=== PATIENT | male | born 1945 | race Caucasian/White ===

== ENCOUNTER → 2024-10-07 | Outpatient (CLI) | payer MEDICARE, SELFPAY ==
--- NOTE | 2024-10-07 11:50 | US_ITS ---
PROCEDURE: Ultrasound of the thyroid. REASON FOR EXAM: Thyroid nodule. COMPARISON: None. PROCEDURE: RIGHT LOBE: The right lobe of the thyroid gland measures 3.6 cm x 2 cm x 1.4 cm cm. There is a heterogeneous echotexture. There is a 4 mm x 5 mm x 4 mm cystic/solid nodule in the inferior pole. No increased blood flow is seen. LEFT LOBE: The left lobe of the thyroid gland measures 3.4 cm x 1.6 cm x 1.3 cm. There is a heterogeneous echotexture. There are no demonstrated solid, cystic or complex lesions. ISTHMUS: The isthmus measures 5 mm. The regional lymph nodes are normal. US/Thyroid IMPRESSION: Heterogeneous appearance of both lobes of the thyroid gland. There is a 4 mm x 5 mm x 4 mm cystic/solid nodule in the inferior pole of the r ight lobe of the thyroid without increased blood flow. Routine follow-up recommended. Reading Location: [facility]
== END | disposition home or self-care (01) ==
PROVIDERS: PCP Family Medicine; Referring Provider Family Medicine; Visit Provider Family Medicine
DX: E04.1 Nontoxic single thyroid nodule (principal)
CPT/HCPCS: 76536

== ENCOUNTER → 2024-10-11 | Outpatient (CLI) | payer MEDICARE, SELFPAY ==
[2024-10-11 08:31] LABS: Bacteria 0 SEEN /hpf (None Seen); Mucous, Urine 0 SEEN /hpf (<or=2+)
[2024-10-11 10:50] LABS: Absolute Lymphocyte Count 1.15 X10^3/uL (0.83-4.51); Basophil# 0.06 X10^3/uL; Color, Urine Yellow (Yellow); Eosinophil# 0.36 X10^3/uL; Eosinophils% 5.7 % (0-5); Glucose, Dipstick Normal (Normal); Hematocrit 46.3 % (40-54); Ketone-Dipstick Negative (Negative); Leukocyte Esterase-Dipstick Negative /ul (Negative); Lymphocyte # 1.15 X10^3/ul (0.83-4.51); Lymphocyte % 18.3 % (19-41); Mean Corp Hgb Conc 32.4 g/dL (32-36); Mean Corpuscular Hgb 31.1 pg (27.0-32.0); Mean Corpuscular Volume 96.1 fL (80-94); Monocyte% 11.1 % (0-10); NRBC Flagged by Analyzer 0 % (0-5); Neutrophil # 3.99 X10^3/uL (2.7-7.7); Neutrophil % 63.4 % (47-70); Nitrite-Dipstick Negative (Negative); Occult Blood-Urine Negative /ul (Negative); Platelet Count 226 K/mm3 (150-450); Protein-Dipstick 15 mg/dl (Negative); RBC Distribution Width CV 12.7 % (11.6-14.6); RBC Distribution Width SD 45.1 fl (35.1-43.9); Red Blood Count 4.82 M/mm3 (4.6-6.2); Urine Bilirubin Dipstick Negative (Negative); Urine Clarity Clear (Clear); Urine Urobilinogen Normal (Normal); White Blood Count 6.3 K/mm3 (4.4-11.0)
[2024-10-11 10:55] LABS: Red Blood Cells-Urine 0 SEEN /hpf (0-5); Squamous Epithelial Cells - UA 0-5 SEEN /hpf (0-5); White Blood Cells 0-5 SEEN /hpf (0-5)
[2024-10-11 11:47] LABS: Protein, Urine (Random) 14.9 mg/dL (0.0-12.0); Protein:Creat Ratio 75 mg/g CRE (0-200)
[2024-10-11 11:49] LABS: PTHIN 52 pg/mL (11-61)
[2024-10-11 12:02] LABS: ALB/GLOB Ratio 1.4 RATIO (0.9-2.4); AST(SGOT) 22 U/L (<=37); Alanine Aminotransfer ALT/SGPT 17 U/L (<=46); Albumin, Serum 4.2 g/dL (3.4-4.8); Alkaline Phosphatase 89 U/L (40-129); Anion Gap 11 (5-15); BUN 20 mg/dL (4-19); BUN/Creat Ratio 16.9 RATIO (10-20); Calcium,Total 9.4 mg/dL (7.6-11.0); Chloride 104 mmol/L (98-108); Cholesterol 153 mg/dL (<=200); Creatinine, Serum 1.17 mg/dL (0.70-1.20); EST Glomerular Filtration Rate 63 (>60); Globulin 2.9 g/dL (2.2-4.2); Glucose 106 mg/dL (70-99); High Density Lipoprotein 48 mg/dL; Low Density Lipoprotein Calc. 71 mg/dL; Magnesium 2.2 mg/dL (1.5-2.2); Potassium 4.1 mmol/L (3.3-5.1); Protein, Total 7.1 g/dL (5.9-8.4); Sodium Level 139 mmol/L (133-145); Total Bilirubin 0.64 mg/dL (0.00-1.30); Triglycerides 169 mg/dL; Very Low Density Lipoprotein 34 mg/dL (5-40); Vitamin B12 908 pg/mL (180-914); Vitamin D,25 Hydroxy 29.9 ng/mL (30-100); cholesterol:hdl ratio screen 3.17
[2024-10-11 23:35] LABS: Hemoglobin A1c 6.2 % (<=5.6)
[2024-10-12 17:08] LABS: Anti-Thyroglobulin AB < 1.0 IU/mL (0.0-0.9); Thyroglobulin, Serum Qt. 6.4 ng/mL (1.4-29.2); Thyroid Peroxidase AB 12 IU/mL (0-34)
== END | disposition home or self-care (01) ==
LOC: MFPLAB 08:26
PROVIDERS: PCP Family Medicine; Referring Provider Family Medicine; Visit Provider Family Medicine
DX: E53.8 Deficiency of other specified B group vitamins (principal); E55.9 Vitamin D deficiency, unspecified; N18.9 Chronic kidney disease, unspecified; E04.1 Nontoxic single thyroid nodule; E78.5 Hyperlipidemia, unspecified; I12.9 Hypertensive chronic kidney disease with stage 1 through stage 4 chronic kidney disease, or unspecified chronic kidney disease; R73.09 Other abnormal glucose
CPT/HCPCS: 36415; 80053; 80061; 81001; 82306; 82570; 82607; 83036; 83735; 83970; 84156; 84432; 84443; 85025; 86376; 86800

== ENCOUNTER → 2024-10-24 | Outpatient (CLI) | payer MEDICARE, SELFPAY ==
--- NOTE | 2024-10-24 06:51 | MRI_ITS ---
PROCEDURE: BRAIN W/WO CONTRAST 10/24/2024 REASON FOR EXAM: TRIGEMINAL NEURALGIA. History of prostate cancer in 2002. 4-5 month history of left pre-auricular pain. Query trigeminal neuralgia. TECHNIQUE: Multiplanar, multisequence MRI of the brain and orbits is performed both before and after administration of 20 mL of intravenous Clariscan. COMPARISON: None. FINDINGS: Major intracranial flow voids are intact. No regional flow void is visualized. There is no evidence of intra-axial or extra-axial mass. There is no evidence of cerebral hemorrhage or cerebral edema. There is no evidence of midline shift. Ventricular system and cisterns are normal. A tiny cavum septum pellucidum is noted. Scattered tiny abnormal bright T2 foci are seen throughout the jaimes radiata and centrum semiovale regions bilaterally, becoming more patchy and confluent areas of more extensive disease in a periventricular location, especially about the posterior horns of both lateral ventricles. No concordant or discordant focus of diffusion restriction is identified. Pituitary gland and optic chiasm are unremarkable. Clivus is normal. Orbital contents are symmetrically normal. No retro-orbital mass or blood vessel is noted. Sinuses are normal. Calvarium is free of suspicious lesion. No abnormal enhancing focus is seen in the brain or leptomeninges. MRI/Brain W/WO Contrast IMPRESSION: Scattered supratentorial white matter findings are nonspecific but likely repre sent areas of gliosis due to chronic microangiopathy. Otherwise negative. Reading Location: [place] [id number]
--- NOTE | 2024-10-24 07:00 | RAD_ITS ---
EXAM: XR Orbits Foreign Body CLINICAL INDICATION: MRI CLEARANCE TECHNIQUE: Frontal view(s) of the orbits. COMPARISON: No relevant prior studies available. FINDINGS: BONES/JOINTS: Unremarkable. No acute fracture. SINUSES: Unremarkable. No air-fluid levels. SOFT TISSUES: Unremarkable. No radiopaque foreign body. RAD/Orbits for Foreign Body IMPRESSION: Normal orbital x-rays. No radiopaque foreign body in either orbit. [facility]
== END | disposition home or self-care (01) ==
PROVIDERS: PCP Family Medicine; Referring Provider Family Medicine; Visit Provider Family Medicine
DX: Z01.818 Encounter for other preprocedural examination (principal); G50.0 Trigeminal neuralgia
CPT/HCPCS: 70030; 70553; A9575

== ENCOUNTER → 2024-10-27 | Outpatient (CLI) | payer MEDICARE, SELFPAY ==
--- NOTE | 2024-10-27 10:15 | RAD_ITS ---
EXAM: XR Right Wrist Complete, 3 or More Views CLINICAL INDICATION: PAIN TECHNIQUE: Frontal, lateral and oblique views of the right wrist. COMPARISON: No relevant prior studies available. FINDINGS: BONES/JOINTS: Healed fracture deformity of the proximal radius. No dislocation. SOFT TISSUES: Soft tissue swelling. No radiopaque foreign body. RAD/Wrist min 3 Views IMPRESSION: Healed fracture deformity of the proximal radius. Reading Location[facility]
== END | disposition home or self-care (01) ==
LOC: MTRAD 10:15
PROVIDERS: PCP Family Medicine; Referring Provider Family Medicine; Visit Provider Family Medicine
DX: M25.531 Pain in right wrist (principal)
CPT/HCPCS: 73110

== ENCOUNTER → 2024-11-11 | Outpatient (CLI) | payer MEDICARE, SELFPAY ==
--- NOTE | 2024-11-11 06:37 | ECHOD_ITS ---
Reason For Study Reason For Study: HTN Procedure This was a 2D Doppler, Color Flow transthoracic echocardiogram. Exam performed in department. Left Ventricle Normal LV size. Mild concentric left ventricular hypertrophy. Left ventricular systolic function is normal. The left ventricular ejection fraction is 60 %. No regional wall motion abnormalities noted. Right Ventricle Normal RV size. Normal systolic function. Atria Normal left atrium. Normal right atrium. Bubble contrast study is negative for PFO/ASD. Mitral Valve Normal mitral valve. Mild (1+) eccentric mitral valve insufficiency. Tricuspid Valve Normal tricuspid valve. Aortic Valve Trisinus/trileaflet aortic valve. Mild (1+) aortic valve insufficiency. Pulmonic Valve Normal pulmonic valve. Great Vessels Normal aortic root. The pulmonary artery is normal size. Inferior vena cava collapse with respiration. Pericardium/Pleural No pericardial effusion. Medication Performed a rapid injection of agitated mix of 9 cc saline and 1cc air to assess for atrial septal defect. MMode/2D Measurements & Calculations LVIDd: 4.1 cm IVSd: 1.3 cm LVOT diam: 1.9 cm LVIDs: 2.5 cm LVPWd: 1.2 cm RVDd: 3.5 cm FS: 39.0 % LVOT area: 2.8 cm2 Ao root diam: 3.3 cm LAV(MOD-bp): 56.9 ml LVAd ap4: 28.1 cm2 LAV(MOD-bp) Indexed: 25.5 ml/m2 LVLd ap4: 8.3 cm LAV(MOD-sp2): 49.2 ml EDV(MOD-sp4): 79.2 ml LAV(MOD-sp4): 52.1 ml EDV(sp4-el): 80.6 ml LVAs ap4: 17.5 cm2 LVLs ap4: 7.5 cm ESV(MOD-sp4): 35.7 ml ESV(sp4-el): 34.7 ml EF(MOD-sp4): 54.9 % EF(sp4-el): 56.9 % LVAd ap2: 29.9 cm2 SV(MOD-sp4): 43.5 ml SV(MOD-sp2): 58.9 ml LVLd ap2: 8.5 cm SI(MOD-sp4): 19.5 ml/m2 SI(MOD-sp2): 26.4 ml/m2 EDV(MOD-sp2): 90.8 ml EDV(sp2-el): 89.4 ml LVAs ap2: 16.5 cm2 LVLs ap2: 7.4 cm ESV(MOD-sp2): 31.9 ml ESV(sp2-el): 31.5 ml EF(MOD-sp2): 64.8 % SV(sp4-el): 45.9 ml LA dimension(2D): 3.9 cm LA A4 area: 16.9 cm2 RA A4 area: 14.0 cm2 TAPSE: 2.2 cm Doppler Measurements & Calculations MV E max adi: 49.7 cm/sec Lat Peak E' Adi: 7.3 cm/sec Med Peak E' Adi: 6.9 cm/sec MV A max adi: 67.9 cm/sec E/E' lat: 6.8 E/E' med: 7.2 MV E/A: 0.73 Ao V2 max: 180.7 cm/sec AI max adi: 392.6 cm/sec LV V1 max: 113.9 cm/sec Ao max P.1 mmHg AI max P.7 mmHg LV V1 max P.2 mmHg Ao V2 mean: 121.3 cm/sec LV V1 mean P.8 mmHg Ao mean P.8 mmHg AI dec slope: 224.7 cm/sec2 LV V1 mean: 77.8 cm/sec Ao V2 VTI: 37.6 cm AI P1/2t: 511.7 msec LV V1 VTI: 26.9 cm AV (velocity ratio): 0.72 JE(I,D): 2.0 cm2 JE(V,D): 1.8 cm2 SV(LVOT): 75.4 ml PA V2 max: 104.8 cm/sec ECHO/Echo Complete Interpretation Summary Normal LV size. Left ventricular systolic function is normal. The left ventricular ejection fraction is 60 %. Bubble contrast study is negative for PFO/ASD. Mild concentric left ventricular hypertrophy. Ordering Physician: Gm Srinivasan Referring Physician: Kyle Noel Performed By: Giselle Miner RDCS
--- NOTE | 2024-11-11 13:35 | STRESSREP ---
Stress Test Report Exercise myocardial perfusion stress test. 79-year-old man with a history of elevated calcium score Stress protocol: Resting EKG demonstrates normal sinus rhythm with a rate of 63 bpm resting blood pressure is 144/74 mmHg. The patient exercised according to the regular Mat protocol for a total duration of 6-1/2 minutes attaining a maximum heart rate of 139 bpm which was 98% of maximum predicted heart rate; the maximum workload was 8.5 metabolic equivalents. At rest there were no ST or T wave changes noted to suggest ischemia and at peak exercise upsloping ST changes only were noted which did not meet the criteria for ischemia. No clinical angina was noted the test was terminated due to the target heart rate being achieved/fatigue. The peak blood pressure was 202/70 mmHg. hypertensive response to exercise is noted. Rate-pressure product was 25,500. Myocardial perfusion protocol. 14.7 mCi of technetium 99m sestamibi was injected at rest. The patient exercised according to regular Mat protocol for total duration of 6-1/2 minutes and at peak exercise 44.4 mCi of technetium 99m sestamibi was injected stress images were obtained stress and rest images were reconstructed in comparing the short axis vertical long and horizontal long axis. Gated images were also obtained. Perfusion SPECT analysis: Review of the stress images demonstrate normal uptake of tracer noted in all areas of the myocardium. The resting images similarly demonstrate normal uptake of tracer noted in all areas of the myocardium. No areas of reversibility are noted to suggest ischemia no previous infarct was noted. Gated SPECT analysis: The gated ejection fraction is 64%. Conclusion: Normal exercise myocardial perfusion stress test at a moderate workload Preserved ejection fraction.
== END | disposition home or self-care (01) ==
PROVIDERS: PCP Family Medicine; Referring Provider Internal Medicine Cardiovascular Disease; Visit Provider Internal Medicine Cardiovascular Disease
DX: I10 Essential (primary) hypertension (principal); I25.10 Atherosclerotic heart disease of native coronary artery without angina pectoris
CPT/HCPCS: 78452; 93017; 93306; A9500; A4216

== ENCOUNTER 2024-11-24 10:20 | Outpatient (RCR) | payer MEDICARE, SELFPAY ==
--- NOTE | 2024-11-24 12:48 | HP.OTEVAL_ITS ---
Patient's Visit Information Visit Information Visit Information: TRINA SAMUEL is a 79 year old M, referred to Occupational Therapy by Dr. Kyle Noel MD, with a diagnosis of right wrist pain. Date of Evaluation: 11/24/24 Occupational Therapist: Chitra Mera, CESARR/Mira, CHT Subjective Subjective: This 79-year-old male was seen for OT eval with dx of right wrist pain. 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 pt states this right wrist pain has been bothering him on and off for some time. pt states his wrist started to bother him and he could not sleep, gas pain with resistive wt. bearing on to his hands ie push-ups etc. pt states he is not sure what triggered it. pt would like to know what he can do to strengthen is arm. pt very active with exercise and helps his who has PD. 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 left RD [address] 30 UD 10 Strength [employer]er: right 55# left 65# Lateral Pinch: right 22# left 18# Tripod Pinch: right18# left 18# Strength Comments: left RD [address] 30 UD 10 Sensation Sensation Comments: denies Quick DASH-Disab of Arm,Shoulder& Hand Quick DASH Score: 0 Goals Goal:: pt will demo the ability to carry with forearm in N to decrease stress of Ulnar side of wrist and decrease pain to perform Daily tasks with pain no greater than 2/10. Goal:: pt will demo understanding of wrist/forearm mechanics and how to avoid placing pressure on ulnar side of wrist with lifting items to decrease strain on soft tissue structures by d.c Goal:: pt will demo understanding of using supportive bracing to provide support and protection with heavy work tasks by d/c Rehabilitation General Assessment: pt demo with increase right ulnar sided wrist pain with res istive stress while forearm is in supination, pt also demo increase pain with resistive wrist flexion in forearm pronated. Pt demo with weakness due to pain with daily tasks. pt would benefit from skilled OT services 2-3 visits to ed. pt on HEP and ed. on joint protection techniques, supportive bracing and risks of work through pain vs stopping. Pt demo understanding and agrees to POC. Rehabilitation Potential: Questionable Anticipated Interventions Anticipated Interventions: Strengthening, Orthoses, Joint Protection/Energy Conservation, Ergonomic Education, Education re assistive Equipment, Education re Diagnosis and Home Program Visit Plan Frequency: 1x/Week Duration: 2-4 Weeks General Plan: look at weightlifting alterative to limit stress on Ulnar side of wrist wrist support/bracing joint protection lilibeth TEXT: Thank you for the opportunity to evaluate your patient. For Medicare and Medicare HMO plans, please review the plan of care and approve it. It will need to be FAXED BACK to us at [phone] for Medicare purposes. Please let me know if there are questions or concerns regarding this plan of care. Physician Signature: Date:
--- NOTE | 2025-03-01 14:53 | HP.OT.NRP ---
Patient Information Patient Information: TRINA SAMUEL was seen in my office for initial evaluation on 11/24/24. The following Plan of Care was established for this patient: POC Established Initial Frequency: 1x/Week Initial Duration: 2-4 Weeks Anticipated Interventions Anticipated Interventions: Strengthening, Orthoses, Joint Protection/Energy Conservation, Ergonomic Education, Education re assistive Equipment, Education re Diagnosis and Home Program Last Seen Last Seen: This patient was last seen in our office 11/24/24. Pertinent comments regarding their Occupational therapy will appear below: pt seen for eval only. no further apts have been scheduled and due to time lapse in services pt is d/c. At this point I will be discontinuing this patient from occupational therapy. I would be happy to see this patient again in the future if found appropriate by the physician. Thank you! Chitra Mera, OTR/L, CHT
== END 2024-11-24 19:00 | disposition home or self-care (01) ==
LOC: OT 10:20
PROVIDERS: PCP Family Medicine; Referring Provider Family Medicine; Visit Provider Family Medicine
DX: M25.539 Pain in unspecified wrist (principal)
CPT/HCPCS: 97166

== ENCOUNTER → 2025-01-26 | Outpatient (CLI) | payer MEDICARE, SELFPAY ==
[2025-01-26 08:40] LABS: Bacteria 0 SEEN /hpf (None Seen); Mucous, Urine 0 SEEN /hpf (<or=2+); Red Blood Cells-Urine 0 SEEN /hpf (0-5); Squamous Epithelial Cells - UA 0 SEEN /hpf (0-5); White Blood Cells 0 SEEN /hpf (0-5)
[2025-01-26 10:52] LABS: Color, Urine Yellow (Yellow); Glucose, Dipstick Normal (Normal); Ketone-Dipstick Negative (Negative); Leukocyte Esterase-Dipstick 25 /ul (Negative); Nitrite-Dipstick Negative (Negative); Occult Blood-Urine Negative /ul (Negative); Protein-Dipstick 15 mg/dl (Negative); Specific Gravity, Urine 1.015 (1.002-1.030); Urine Bilirubin Dipstick Negative (Negative); Urine Clarity Clear (Clear); Urine Urobilinogen Normal (Normal); Urine pH 6.5 (5.0 - 8.0)
[2025-01-26 10:53] LABS: Absolute Lymphocyte Count 1.17 X10^3/uL (0.83-4.51); Absolute Neutrophil Count 3.6 X10^3/uL (2.0-7.7); Basophil# 0.04 X10^3/uL; Basophil% 0.7 % (0-1); Eosinophil# 0.29 X10^3/uL; Hematocrit 41.6 % (40-54); Hemoglobin 13.6 g/dL (13.0-16.5); Lymphocyte # 1.17 X10^3/ul (0.83-4.51); Mean Corp Hgb Conc 32.7 g/dL (32-36); Mean Corpuscular Hgb 31.7 pg (27.0-32.0); Mean Platelet Vol. 10.2 fl (6.2-12.0); Monocyte# 0.71 X10^3/uL; Monocyte% 12.1 % (0-10); NRBC Flagged by Analyzer 0 % (0-5); Neutrophil # 3.62 X10^3/uL (2.7-7.7); Neutrophil % 61.9 % (47-70); Platelet Count 228 K/mm3 (150-450); RBC Distribution Width CV 13.3 % (11.6-14.6); RBC Distribution Width SD 47.7 fl (35.1-43.9); Red Blood Count 4.29 M/mm3 (4.6-6.2); White Blood Count 5.9 K/mm3 (4.4-11.0)
[2025-01-26 11:10] LABS: Protein, Urine (Random) 12.1 mg/dL (0.0-12.0); Protein:Creat Ratio 54 mg/g CRE (0-200)
[2025-01-26 11:58] LABS: ALB/GLOB Ratio 1.6 RATIO (0.9-2.4); AST(SGOT) 21 U/L (<=37); Alanine Aminotransfer ALT/SGPT 17 U/L (<=46); Albumin, Serum 4.4 g/dL (3.4-4.8); Alkaline Phosphatase 81 U/L (40-129); Anion Gap 12 (5-15); BUN 23 mg/dL (4-19); BUN/Creat Ratio 18.3 RATIO (10-20); Calcium,Total 9.5 mg/dL (7.6-11.0); Carbon Dioxide 21.9 mmol/L (21.0-32.0); Chloride 105 mmol/L (98-108); Cholesterol 152 mg/dL (<=200); Creatinine, Serum 1.26 mg/dL (0.70-1.20); EST Glomerular Filtration Rate 58 (>60); Globulin 2.8 g/dL (2.2-4.2); Glucose 103 mg/dL (70-99); High Density Lipoprotein 53 mg/dL; Low Density Lipoprotein Calc. 74 mg/dL; Magnesium 2.5 mg/dL (1.5-2.2); Potassium 4.2 mmol/L (3.3-5.1); Protein, Total 7.1 g/dL (5.9-8.4); Sodium Level 140 mmol/L (133-145); Total Bilirubin 0.67 mg/dL (0.00-1.30); Triglycerides 126 mg/dL; Very Low Density Lipoprotein 25 mg/dL (5-40); Vitamin B12 974 pg/mL (180-914); Vitamin D,25 Hydroxy 45.3 ng/mL (30-100)
== END | disposition home or self-care (01) ==
LOC: MFPLAB 08:22
PROVIDERS: PCP Family Medicine; Referring Provider Family Medicine; Visit Provider Family Medicine
DX: E78.5 Hyperlipidemia, unspecified (principal); I10 Essential (primary) hypertension; E55.9 Vitamin D deficiency, unspecified; R73.02 Impaired glucose tolerance (oral); E53.8 Deficiency of other specified B group vitamins
CPT/HCPCS: 36415; 80053; 80061; 81001; 82306; 82570; 82607; 83036; 83735; 84156; 84443; 85025

== ENCOUNTER → 2025-03-15 | Outpatient (CLI) | payer MEDICARE, SELFPAY ==
--- NOTE | 2025-03-15 07:33 | CT_ITS ---
PROCEDURE: CHEST WITHOUT CONTRAST 03/15/2025 REASON FOR EXAM: HYPOXEMIA Sleep apnea. Asthma. TECHNIQUE: Chest CT without contrast. Coronal and Sagittal reconstruction series were provided. One or more dose reduction techniques were used (e.g., Automated exposure control, adjustment of the mA and/or kV according to patient size, use of iterative reconstruction technique RADIATION DOSE SUMMARY: CTDlvol: 16.70 mGy DLP: 664.15 mGycm COMPARISON: None FINDINGS: Hardware: None Lymph nodes: Small benign-appearing bilateral axillary lymph nodes. Heart and Vasculature: The heart is not enlarged. Atherosclerotic calcifications of the thoracic aorta. Thoracic aorta and pulmonary arteries have normal contours; noncontrast technique limits evaluation. Coronary Artery Calcifications: Present Lungs and Airways: No pulmonary infiltration or mass lesion is seen. No evidence of pulmonary fibrosis. Tiny calcified granuloma in the right lower lobe. Pleura: No pleural effusion. Upper Abdomen: Findings suggestive of a 5.3 cm 5.9 cm cyst in the posterior mid lower aspect of the left kidney. Correlation with ultrasound recommended. Bones: Degenerative changes of the thoracic spine. CT/Chest without Contrast IMPRESSION: Coronary artery calcification (CAC) is is present No evidence of infiltration or mass lesion. No evidence of pulmonary fibrosis. Reading Location: [facility]
--- OUTSIDE RECORDS SUMMARY | 2025-03-15 07:36 | XMS RPT_ITS | CCD ---
Author Organization [facility] Care Team Providers Care Cnc Supervisor Name Role Phone Referred, Self Attending Provider Unavailable Referred, Self Referring Provider Unavailable Care Physician, No Primary Primary Care Provider Unavailable Bert RAO, Dr. Kyle Harrison Primary Care Provider [phone] Bert RAO, Dr. Kyle Harrison Attending Provider [phone] Bert RAO, Dr. Kyle Harrison Referring Provider [phone] [facility] Doctor, Out of Referring Provider Unavailab Carisa RAO, Dr. Worrell Attending Provider Craig RAO, Dr. Worrell Referring Provider [phone] Referred, Self Referring Unavailable Referred, Self Attending Unavailable Care Physician, No Primary Primary Care Unava ilable Kyle Noel Primary Care Unavailable Kyle Noel Referring Unavailable Kyle Noel Attending Unavailable Kyle Noel Referring Unavailable Kyle Noel Attending Unavailable Kyle Noel Primary Care Unavailable Kyle Noel Referring Unavailable Kyle Noel Attending Unavailable Kyle Noel Primary Care Unavailable SibTrina frey V Attending Unavailable Kyle Noel Primary Care Unavailable SibTrina frey V Referring Unavailable Kyle Noel Primary Care Unavailable Kyle Noel Referring Unavailable Kyle Noel Attending Unavailable Kyle Noel Primary Care Unavailable Gm Srinivasan Referring Unavailable Gm Srinivasan Attending Unavailable Town Doctor, Out of Referring Unavailable Kyle Noel Primary Care Unavailable Gm Srinivasan Attending Unavailable Kyle Noel Primary Care Unavailable Craig Gm Attending Unavailable Kyle Noel Referring Unavailable Kyle Noel Attending Unavailable Kyle Noel Primary Care Unavailable Kyle Noel Primary Care Unavailable Kyle Noel Referring Unavailable Kyle Noel Attending Unavailable Kyle Noel Primary Care Unavailable Schinner, Kyle E Referring Unavailable Kyle Noel Attending Unavailable Allergies Allergy Classification Reported Allergen(s) Allergy Type Date of Onset Reaction(s) Facility (7 sources) Adhesive agent; Translations: [adhesive] Propensity to adverse reactions 5 [facility] (6 sources) Bacitracin Drug Allergy 5 [facility] (6 sources) Polymyxin B Drug Allergy 5 [facility] (5 sources) FD and C green no.3 Allergy to substance 5 [facility] (1 source) Bacitracin Drug Allergy 5 [facility] (1 source) polymyxin B Drug allergy (disorder) 5 [facility] (1 source) FD and C green no.3 Drug allergy (disorder) 5 [facility] Medications Current Medications Medication Drug Class(es) Dates Sig (Normalized) Sig (Original) amLODIPine 10 mg oral tablet (11 sources) Dihydropyridine Calcium Channel Jacqueline Start: 10-19-2024 take 1 tablet by mouth once daily Amlodipine 10 mg tablet Active 10 mg PO daily 90 3 October 19, 2024 2:40pm Start: 09-20-2024 End: 10-19-2024 take 1 tablet by mouth once daily Amlodipine 5 mg tablet Discontinued 5 mg PO daily September 20, 2024 1:00am October 19, 2024 2:42pm ascorbic acid 500 mg oral tablet (5 sources) Vitamin C Start: 10-19-2024 take 1 tablet by mouth every week Ascorbic Acid (Vitamin C) 500 mg tablet Active 500 mg PO EVERY WEEK October 19, 2024 12:00am aspirin 81 mg delayed release oral tablet (5 sources) Platelet Aggregation Inhibitor, Nonsteroidal Anti-inflammatory Drug Start: 10-19-2024 take 1 tablet by mouth once daily Aspirin (Adult Aspirin Regimen) 81 mg tablet,delayed release (DR/EC) Active 81 mg PO daily October 19, 2024 12:00am lisinopril 5 mg oral tablet (2 sources) Angiotensin Converting Enzyme Inhibitor Start: 11-11-2024 take 1 tablet by mouth once daily Lisinopril 5 mg tablet Active 5 mg PO daily November 11, 2024 12:00am Mecobalamin (Vitamin B12) 1,000 mcg lozenge (5 sources) Start: 10-19-2024 take 1000 ug by mouth once daily Mecobalamin (Vitamin B12) 1,000 mcg lozenge Active 1000 ug PO daily October 19, 2024 12:00am allow to dissolve in mouth OR may chew lightly before swallowing rosuvastatin calcium 10 mg oral tablet (6 sources) HMG-CoA Reductase Inhibitor Start: 09-20-2024 take 1 tablet by mouth once daily Rosuvastatin 10 mg tablet Active 10 mg PO daily September 20, 2024 1:00am Tralokinumab-Ldrm (5 sources) Start: 10-19-2024 Tralokinumab-Ldrm (Adbry) 150 mg/mL syringe Active mg SC October 19, 2024 12:00am ubidecarenone 30 mg oral capsule (5 sources) Start: 10-19-2024 Coenzyme Q10 30 mg capsule Active 30 mg PO daily October 19, 2024 12:00am Problems Active Problems Problem Classification Problem Date Documented Da te Episodic/Chronic Administrative/social admission (6 sources) Caregiver role strain; Translations: [Dependent relative needing care at home] 09-20-2024 Episodic Coronary atherosclerosis and other heart disease (10 sources) Coronary atherosclerosis; Translations: [Atherosclerotic heart disease of elim ira coronary artery without angina pectoris] 10-19-2024 Chronic Disorders of lipid metabolism (19 sources) Hypercholesterolemia ; Translations: [Pure hypercholesterolemia , unspecified] Onset: 10-19-2024 09-20-2024 Chronic Essential hypertension (12 sources) Essential hypertension; Translations: [Essential (primary) hypertension] Onset: 11-16-2024 09-20-2024 Chronic Other diseases of kidney and ureters (6 sources) Abnormal renal function; Translations: [Disorder of kidney and ureter, unspecified] 09-20-2024 Episodic Other lower respiratory disease (6 sources) Chronic cough; Translations: [Chronic cough] 09-20-2024 Episodic Other lower respiratory disease (1 source) Hypoxemia; Translations: [Hypoxemia] Onset: 03-02-2025 Episodic Spondylosis; intervertebral disc disorders; other back problems (6 sources) Degeneration of intervertebral disc; Translations: [Degeneration of intervertebral disc, site unspecified] 09-20-2024 Chronic Thyroid disorders (1 source) Nontoxic single thyroid nodule; Translations: [Nontoxic single thyroid nodule] Onset: 10-18-2024 Chronic Past or Other Problems Problem Classification Problem Date Documented Da te Episodic/Chronic Nutritional deficiencies (1 source) Deficiency of other specified B group vitamins; Translations: [Deficiency of other specified B group vitamins] Onset: 10-21-2024 Episodic Other non-traumatic joint disorders (2 sources) Pain in right wrist; Translations: [Pain in right wrist] Onset: 10-27-2024 Episodic Results Test Name Value Interpretation Reference Range Facility Absolute lymphocyte countOrd ered By: Kyle Noel on 01-26-2025 Lymphocytes Auto (Unsp spec) [#/Vol] 1.17 10*3/uL 0.83-4.51 [facility] Absolute neutrophil countOrd ered By: Kyle Noel on 01-26-2025 Neutrophils (Bld) [#/Vol] 3.6 10*3/uL 2.0-7.7 [facility] Anion gap in Serum or Plasma Ordered By: Kyle Noel on 01-26-2025 Anion gap [Moles/Vol] 12 mmol/L 5- [facility] Automated lymphocyte count a s percentage of total leukocytesOrdered By: Kyle Noel on 01-26-2025 Lymphocytes/100 WBC Auto (Unsp spec) 20.0 % - [facility] BUN/creatinine ratioOrdered By: Kyle Noel on 01-26-2025 Urea nitrogen/Creatinine [Mass ratio] 18.3 mg/mg 10-20 [facility] Basophil percentageOrdered B y: Kyle Noel on 01-26-2025 Basophils/100 WBC (Bld) 0.7 % 0-1 [facility] Bilirubin Test strip Ql (U)O rdered By: Kyle Noel on 01-26-2025 Bilirubin Ql (U) Negative Negative [facility] Bilirubin, totalOrdered By: Kyle Noel on 01-26-2025 Bilirubin [Mass/Vol] 0.67 mg/dL 0.00-1.30 [facility] CBC W/Diff, Automatedon 01-02 Absolute Lymph 1.17 X10 3/uL Normal 0.83-4.51 [facility] Comment on above: Order Comment: Order Date: 01/26/25 Order Info: [id number] - CBCD Performed By: #### L 500.4050, L501.9985, L501.5200, L501.9520, L500.4100, L100.0100 #### [facility] [address] [place], [address] Absolute Neut 3.6 X10 3/uL Normal 2.0-7.7 [facility] Comment on above: Order Comment: Order Date: 01/26/25 Order Info: [id number] - CBCD Performed By: #### L 500.4050, L501.9985, L501.5200, L501.9520, L500.4100, L100.0100 #### [facility] [address] [facility] [place], [address] Basophils/100 WBC (Bld) 0.7 % Normal 0-1 [facility] Comment on above: Order Comment: Order Date: 01/26/25 Order Info: [id number] - CBCD Performed By: #### L 500.4050, L501.9985, L501.5200, L501.9520, L500.4100, L100.0100 #### [facility] [address] [place], [address] Eosinophils/100 WBC (Bld) 5.0 % Normal 0-5 [facility] Comment on above: Order Comment: Order Date: 01/26/25 Order Info: 0184-1 - CBCD Performed By: #### L 500.4050, L501.9985, L501.5200, L501.9520, L500.4100, L100.0100 #### [facility] [address] [facility] [place], [address] Erythrocyte distribution width (RBC) [Ratio] 13.3 % Normal 11.6-14.6 [facility] Comment on above: Order Comment: Order Date: 01/26/25 Order Info: 0184-1 - CBCD Performed By: #### L 500.4050, L501.9985, L501.5200, L501.9520, L500.4100, L100.0100 #### [facility] [address] [place], [address] Hematocrit (Bld) [Volume fraction] 41.6 % Normal 40-54 [facility] Comment on above: Order Comment: Order Date: 01/26/25 Order Info: 0184-1 - CBCD Performed By: #### L 500.4050, L501.9985, L501.5200, L501.9520, L500.4100, L100.0100 #### [facility] [address] [facility] [place], [address] Hemoglobin (Bld) [Mass/Vol] 13.6 g/dL Normal 13.0-16.5 [facility] Comment on above: Order Comment: Order Date: 01/26/25 Order Info: 0184-1 - CBCD Performed By: #### L 500.4050, L501.9985, L501.5200, L501.9520, L500.4100, L100.0100 #### [facility] [address] [place], [address] IG% 0.300 Normal 0.0-0.9 [facility] Comment on above: Order Comment: Order Date: 01/26/25 Order Info: 0184-1 - CBCD Result Comment: IG% - Immature Granulocytes (promyelocytes, myelocytes and metamyelocytes) > 1% indicates that a LEFT SHIFT is Present. Performed By: #### L 500.4050, L501.9985, L501.5200, L501.9520, L500.4100, L100.0100 #### [facility] [address] [place], [address] Lymphocytes/100 WBC (Bld) 20.0 % Normal 19-41 [facility] Comment on above: Order Comment: Order Date: 01/26/25 Order Info: 0184-1 - CBCD Performed By: #### L 500.4050, L501.9985, L501.5200, L501.9520, L500.4100, L100.0100 #### [facility] [address] [place], [address] MCH (RBC) [Entitic mass] 31.7 pg Normal 27.0-32.0 [facility] Comment on above: Order Comment: Order Date: 01/26/25 Order Info: 0184-1 - CBCD Performed By: #### L 500.4050, L501.9985, L501.5200, L501.9520, L500.4100, L100.0100 #### [facility] [address] [place], [address] MCHC (RBC) [Mass/Vol] 32.7 g/dL Normal 32-36 [facility] Comment on above: Order Comment: Order Date: 01/26/25 Order Info: 0184-1 - CBCD Performed By: #### L 500.4050, L501.9985, L501.5200, L501.9520, L500.4100, L100.0100 #### [facility] [address] [place], [address] MCV (RBC) [Entitic vol] 97.0 fL High 80-94 [facility] Comment on above: Order Comment: Order Date: 01/26/25 Order Info: 0184-1 - CBCD Performed By: #### L 500.4050, L501.9985, L501.5200, L501.9520, L500.4100, L100.0100 #### [facility] [address] [facility] [place], [address] Monocytes/100 WBC (Bld) 12.1 % High 0-10 [facility] Comment on above: Order Comment: Order Date: 01/26/25 Order Info: 0184-1 - CBCD Performed By: #### L 500.4050, L501.9985, L501.5200, L501.9520, L500.4100, L100.0100 #### [facility] [address] [place], [address] Neutrophils/100 WBC (Bld) 61.9 % Normal 47-70 [facility] Comment on above: Order Comment: Order Date: 01/26/25 Order Info: 0184- - CBCD Performed By: #### L 500.4050, L501.9985, L501.5200, L501.9520, L500.4100, L100.0100 #### [facility] [address] [place], [address] Nucleated RBC (Bld) [#/Vol] 0 10*3/uL Normal 0-5 [facility] Comment on above: Order Comment: Order Date: 01/26/25 Order Info: [id number]- - CBCD Performed By: #### L 500.4050, L501.9985, L501.5200, L501.9520, L500.4100, L100.0100 #### [facility] [address] [place], [address] Platelet mean volume (Bld) [Entitic vol] 10.2 fL Normal 6.2-12.0 [facility] Comment on above: Order Comment: Order Date: 01/26/25 Order Info: 0184- - CBCD Performed By: #### L 500.4050, L501.9985, L501.5200, L501.9520, L500.4100, L100.0100 #### [facility] [address] [place], [address] Platelets (Bld) [#/Vol] 228 10*3/uL Normal 150-450 [facility] Comment on above: Order Comment: Order Date: 01/26/25 Order Info: 0184-1 - CBCD Performed By: #### L 500.4050, L501.9985, L501.5200, L501.9520, L500.4100, L100.0100 #### [facility] [address] [place], [place], [id number] RBC (Bld) [#/Vol] 4.29 10*6/uL Low 4.6-6.2 [facility] Comment on above: Order Comment: Order Date: 01/26/25 Order Info: 0184-1 - CBCD Performed By: #### L 500.4050, L501.9985, L501.5200, L501.9520, L500.4100, L100.0100 #### [facility] [address] [place], [place], [id number] RDW SD 47.7 fl High 35.1-43.9 [facility] Comment on above: Order Comment: Order Date: 01/26/25 Order Info: 0184-1 - CBCD Performed By: #### L 500.4050, L501.9985, L501.5200, L501.9520, L500.4100, L100.0100 #### [facility] [address] [place], [place], [address] WBC (Bld) [#/Vol] 5.9 10*3/uL Normal 4.4-11.0 [facility] Comment on above: Order Comment: Order Date: 01/26/25 Order Info: 0184-1 - CBCD Performed By: #### L 500.4050, L501.9985, L501.5200, L501.9520, L500.4100, L100.0100 #### [facility] [address] [place], [place], [id number] Calculated very low density lipoprotein (VLDL) cholesterol measurementOrdered By: Kyle Noel on 01-26-2025 Calculated very low density lipoprotein (VLDL) cholesterol measurement 25 mg/dL 5-40 [facility] Carbon dioxide, total [Moles /volume] in Central venous bloodOrdered By: Kyle Noel on 01-26-2025 CO2 [Moles/Vol] 21.9 mmol/L 21.0-32.0 [facility] Chloride assayOrdered By: Piedad Noel on 01-26-2025 Chloride [Moles/Vol] 105 mmol/L 98-108 [facility] Comprehensive Metabolic Prof ilon 01-26-2025 Albumin [Mass/Vol] 4.4 g/dL Normal 3.4-4.8 [facility] Comment on above: Order Comment: Order Date: 01/26/25 Order Info: [id number] - CMP Order Info: [id number] - LIPID Order Info: [id number] - MG Order Info: [id number] - TSH Performed By: #### L 500.4050, L501.9985, L501.5200, L501.9520, L500.4100, L100.0100 #### [facility] [address] [place], [place], [id number] Albumin/Globulin [Mass ratio] 1.6 {ratio} Normal 0.9-2.4 [facility] Comment on above: Order Comment: Order Date: 01/26/25 Order Info: 86-1 - CMP Order Info: [id number] - LIPID Order Info: [id number] - MG Order Info: [id number] - TSH Performed By: #### L 500.4050, L501.9985, L501.5200, L501.9520, L500.4100, L100.0100 #### [facility] [address] [place], [place], [address] ALK PHOS 81 U/L Normal 40-129 [facility] Comment on above: Order Comment: Order Date: 01/26/25 Order Info: [id number] - CMP Order Info: [id number] - LIPID Order Info: [id number] - MG Order Info: [id number] - TSH Performed By: #### L 500.4050, L501.9985, L501.5200, L501.9520, L500.4100, L100.0100 #### [facility] [address] [place], [place], [id number] ALT [Catalytic activity/Vol] 17 U/L Normal <=46 [facility] Comment on above: Order Comment: Order Date: 01/26/25 Order Info: 86-1 - CMP Order Info: [id number] - LIPID Order Info: [id number] - MG Order Info: [id number] - TSH Performed By: #### L 500.4050, L501.9985, L501.5200, L501.9520, L500.4100, L100.0100 #### [facility] [address] [place], [address] AST [Catalytic activity/Vol] 21 U/L Normal <=37 [facility] Comment on above: Order Comment: Order Date: 01/26/25 Order Info: 86-1 - CMP Order Info: [id number] - LIPID Order Info: [id number] - MG Order Info: [id number] - TSH Performed By: #### L 500.4050, L501.9985, L501.5200, L501.9520, L500.4100, L100.0100 #### [facility] [address] [place], [place], [id number] Bilirubin [Mass/Vol] 0.67 mg/dL Normal 0.00-1.30 [facility] Comment on above: Order Comment: Order Date: 01/26/25 Order Info: 86-1 - CMP Order Info: [id number] - LIPID Order Info: [id number] - MG Order Info: [id number] - TSH Performed By: #### L 500.4050, L501.9985, L501.5200, L501.9520, L500.4100, L100.0100 #### [facility] [address] [place], [place], [address] BUN/CRE 18.3 RATIO Normal 10-20 [facility] Comment on above: Order Comment: Order Date: 01/26/25 Order Info: [id number] - CMP Order Info: [id number] - LIPID Order Info: [id number] - MG Order Info: [id number] - TSH Performed By: #### L 500.4050, L501.9985, L501.5200, L501.9520, L500.4100, L100.0100 #### [facility] [address] [place], [address] Calcium [Mass/Vol] 9.5 mg/dL Normal 7.6-11.0 [facility] Comment on above: Order Comment: Order Date: 01/26/25 Order Info: 86-1 - CMP Order Info: [id number] - LIPID Order Info: [id number] - MG Order Info: 3 - TSH Performed By: #### L 500.4050, L501.9985, L501.5200, L501.9520, L500.4100, L100.0100 #### [facility] [address] [place], [address] Chloride [Moles/Vol] 105 mmol/L Normal 98-108 [facility] Comment on above: Order Comment: Order Date: 01/26/25 Order Info: 785-1 - CMP Order Info: [id number] - LIPID Order Info: [id number] - MG Order Info: 3 - TSH Performed By: #### L 500.4050, L501.9985, L501.5200, L501.9520, L500.4100, L100.0100 #### [facility] [address] [place], [address] CO2 [Moles/Vol] 21.9 mmol/L Normal 21.0-32.0 [facility] Comment on above: Order Comment: Order Date: 01/26/25 Order Info: 86-1 - CMP Order Info: [id number] - LIPID Order Info: [id number] - MG Order Info: [id number] - TSH Performed By: #### L 500.4050, L501.9985, L501.5200, L501.9520, L500.4100, L100.0100 #### [facility] [address] [place], [place], [address] Creatinine [Mass/Vol] 1.26 mg/dL High 0.70-1.20 [facility] Comment on above: Order Comment: Order Date: 01/26/25 Order Info: [id number] - CMP Order Info: [id number] - LIPID Order Info: [id number] - MG Order Info: [id number] - TSH Performed By: #### L 500.4050, L501.9985, L501.5200, L501.9520, L500.4100, L100.0100 #### [facility] [address] [place], [address] GAP 12 Normal 5-15 [facility] Comment on above: Order Comment: Order Date: 01/26/25 Order Info: [id number] - CMP Order Info: [id number] - LIPID Order Info: [id number] - MG Order Info: [id number] - TSH Performed By: #### L 500.4050, L501.9985, L501.5200, L501.9520, L500.4100, L100.0100 #### [facility] [address] [place], [address] GFR/1.73 sq M.predicted among non-blacks MDRD (S/P/Bld) [Vol rate/Area] 58 mL/min/{1.73_m2} Low >60 [facility] Comment on above: Order Comment: Order Date: 01/26/25 Order Info: [id number] - CMP Order Info: [id number] - LIPID Order Info: [id number] - MG Order Info: [id number] - TSH Result Comment: mL/m in/1.73m2 CKD-EPI Creatinine Equation (2020) Performed By: #### L 500.4050, L501.9985, L501.5200, L501.9520, L500.4100, L100.0100 #### [facility] [address] [place], [place], [id number] (792) Globulin (S) [Mass/Vol] 2.8 g/dL Normal 2.2-4.2 [facility] Comment on above: Order Comment: Order Date: 01/26/25 Order Info: [id number] - CMP Order Info: [id number] - LIPID Order Info: [id number] - MG Order Info: [id number] - TSH Performed By: #### L 500.4050, L501.9985, L501.5200, L501.9520, L500.4100, L100.0100 #### [facility] [address] [place], [address] Glucose [Mass/Vol] 103 mg/dL High 70-99 [facility] Comment on above: Order Comment: Order Date: 01/26/25 Order Info: [id number] - CMP Order Info: [id number] - LIPID Order Info: [id number] - MG Order Info: [id number] - TSH Performed By: #### L 500.4050, L501.9985, L501.5200, L501.9520, L500.4100, L100.0100 #### [facility] [address] [place], [address] Potassium [Moles/Vol] 4.2 mmol/L Normal 3.3-5.1 [facility] Comment on above: Order Comment: Order Date: 01/26/25 Order Info: [id number] - CMP Order Info: [id number] - LIPID Order Info: [id number] - MG Order Info: [id number] - TSH Performed By: #### L 500.4050, L501.9985, L501.5200, L501.9520, L500.4100, L100.0100 #### [facility] [address] [place], [address] Sodium [Moles/Vol] 140 mmol/L Normal 133-145 [facility] Comment on above: Order Comment: Order Date: 01/26/25 Order Info: [id number] - CMP Order Info: [id number] - LIPID Order Info: [id number] - MG Order Info: [id number] - TSH Performed By: #### L 500.4050, L501.9985, L501.5200, L501.9520, L500.4100, L100.0100 #### [facility] [address] [place], [place], [id number] T PROT 7.1 g/dL Normal 5.9-8.4 [facility] Comment on above: Order Comment: Order Date: 01/26/25 Order Info: [id number] - CMP Order Info: [id number] - LIPID Order Info: [id number] - MG Order Info: [id number] - TSH Performed By: #### L 500.4050, L501.9985, L501.5200, L501.9520, L500.4100, L100.0100 #### [facility] [address] [place], [place], [id number] Urea nitrogen [Mass/Vol] 23 mg/dL High 4-19 [facility] Comment on above: Order Comment: Order Date: 01/26/25 Order Info: [id number] - CMP Order Info: [id number] - LIPID Order Info: [id number] - MG Order Info: [id number] - TSH Performed By: #### L 500.4050, L501.9985, L501.5200, L501.9520, L500.4100, L100.0100 #### [facility] [address] [place], [place], [id number] Eosinophil percentageOrdered By: Kyle Noel on 01-26-2025 Eosinophils/100 WBC (Bld) 5.0 % 0-5 [facility] Erythrocyte distribution wid th ratioOrdered By: Kyle Noel on 01-26-2025 Erythrocyte distribution width (RBC) [Ratio] 13.3 % 11.6-14.6 [facility] Erythrocyte distribution wid th standard deviationOrdered By: Kyle Noel on 01-26-2025 Erythrocyte distribution width (RBC) [Ratio] 47.7 fl High 35.1-43.9 [facility] Glomerular filtration rate ( GFR) estimation/1.73 sq m using serum, plasma, or whole bOrdered By: Kyle Noel on 01-26-2025 GFR/1.73 sq M.predicted among non-blacks MDRD (S/P/Bld) [Vol rate/Area] 58 mL/min/{1.73_m2} Low >60 [facility] Comment on above: mL/min/1.73m2 CKD-EP I Creatinine Equation (2020) Hematocrit Auto (Bld) [Volum e fraction]Ordered By: Kyle Noel on 01-26-2025 Hematocrit (Bld) [Volume fraction] 41.6 % 40-54 [facility] Hemoglobin A1con 01-26-2025 HbA1c (Bld) [Mass fraction] 6.0 % High <=5.6 [facility] Comment on above: Order Comment: Order Date: 01/26/25 Order Info: [id number] - A1C Result Comment: Norm al < 5.7 % Prediabetic 5.7 - 6.4 % Diabetic >or= 6.5 % Please note range changes. Performed By: #### L 500.4050, L501.9985, L501.5200, L501.9520, L500.4100, L100.0100 #### [facility] [address] [place], [place], [address] Hemoglobin A1c percentageOrd ered By: Kyle Noel on 01-26-2025 HbA1c (Bld) [Mass fraction] 6.0 % High <5.7 [facility] Comment on above: Normal < 5.7 % Predi abetic 5.7 - 6.4 % Diabetic >or= 6.5 % Please note range changes. Hemoglobin measurementOrdere d By: Kyle Noel on 01-26-2025 Hemoglobin (Bld) [Mass/Vol] 13.6 g/dL 13.0-16.5 [facility] Immature granulocytes/100 WB C Auto (Bld)Ordered By: Kyle Noel on 01-26-2025 Immature granulocytes/100 WBC (Bld) 0.300 % 0.0-0.9 [facility] Comment on above: IG% - Immature Granu locytes (promyelocytes, myelocytes and metamyelocytes) > 1% indicates that a LEFT SHIFT is Present. Ketones Test strip Ql (U)Ord ered By: Kyle Noel on 01-26-2025 Ketones Ql (U) Negative Negative [facility] LDL calc ser/plasOrdered By: Kyle Noel on 01-26-2025 Cholesterol in LDL [Mass/Vol] 74 mg/dL [facility] Comment on above: Zsrmibsmbp=268-761 m g/dL & Higher Rsna=901 mg/dL or greater Laboratory - Chemistry and C hemistry - challengeOrdered By: Kyle Noel on 01-26-2025 AST [Catalytic activity/Vol] 21 U/L <38 [facility] Lipid Profileon 01-26-2025 CHOL:HDL 2.90 Normal [facility] Comment on above: Order Comment: Order Date: 01/26/25 Order Info: [id number] - CMP Order Info: [id number] - LIPID Order Info: [id number] - MG Order Info: [id number] - TSH Performed By: #### L 500.4050, L501.9985, L501.5200, L501.9520, L500.4100, L100.0100 #### [facility] [address] [place], [address] Cholesterol [Mass/Vol] 152 mg/dL Normal <=200 [facility] Comment on above: Order Comment: Order Date: 01/26/25 Order Info: [id number] - CMP Order Info: [id number] - LIPID Order Info: [id number] - MG Order Info: [id number] - TSH Result Comment: Chol esterol level, Desirable <200 mg/dL Borderline high cholesterol 200-239 mg/dL High cholesterol >=240 mg/dL Recommendations of the NCEP Adult Treatment Panel for the following risk-cutoff thresholds for the [place] population. Performed By: #### L 500.4050, L501.9985, L501.5200, L501.9520, L500.4100, L100.0100 #### [facility] [address] [place], [address] Cholesterol in HDL [Mass/Vol] 53 mg/dL Normal [facility] Comment on above: Order Comment: Order Date: 01/26/25 Order Info: [id number]- - CMP Order Info: [id number] - LIPID Order Info: [id number] - MG Order Info: 3 - TSH Result Comment: Odalys onal Cholesterol Education Program (NCEP) guidelines: <40 mg/dL: Low HDL-cholesterol (major risk factor for CHD) >= 60 mg/dL: High HDL-cholesterol (negative risk factor for CHD) HDL-cholesterol is affected by a number of factors, e.g. smoking, exercise, hormones, sex and age. Performed By: #### L 500.4050, L501.9985, L501.5200, L501.9520, L500.4100, L100.0100 #### [facility] [address] [place], [address] Cholesterol in LDL [Mass/Vol] 74 mg/dL Normal [facility] Comment on above: Order Comment: Order Date: 01/26/25 Order Info: [id number] - CMP Order Info: - LIPID Order Info: [id number] - MG Order Info: 3 - TSH Result Comment: Bord lfjjru=597-849 mg/dL Higher Ynkh=048 mg/dL or greater Performed By: #### L 500.4050, L501.9985, L501.5200, L501.9520, L500.4100, L100.0100 #### [facility] [address] [place], [address] Cholesterol in VLDL [Mass/Vol] 25 mg/dL Normal 5-40 [facility] Comment on above: Order Comment: Order Date: 01/26/25 Order Info: [id number] - CMP Order Info: [id number] - LIPID Order Info: [id number] - MG Order Info: 3 - TSH Performed By: #### L 500.4050, L501.9985, L501.5200, L501.9520, L500.4100, L100.0100 #### [facility] [address] [place], [place], [address] Triglyceride [Mass/Vol] 126 mg/dL Normal [facility] Comment on above: Order Comment: Order Date: 01/26/25 Order Info: [id number] - CMP Order Info: [id number] - LIPID Order Info: [id number] - MG Order Info: [id number] - TSH Result Comment: The drugs N-Acetylcysteine and Metamizole may falsely depress this assay. Normal range: <150 mg/dL Borderline High: 150-199 mg/dL High: 200-499 mg/dL Very High: >500 mg/dL Performed By: #### L 500.4050, L501.9985, L501.5200, L501.9520, L500.4100, L100.0100 #### [facility] [address] [place], [place], [address] MCV (mean corpuscular volume ) determinationOrdered By: Kyle Noel on 01-26-2025 MCV (RBC) [Entitic vol] 97.0 fL High 80-94 [facility] Magnesiumon 01-26-2025 Magnesium [Mass/Vol] 2.5 mg/dL High 1.5-2.2 [facility] Comment on above: Order Comment: Order Date: 01/26/25 Order Info: [id number] - CMP Order Info: [id number] - LIPID Order Info: [id number] - MG Order Info: [id number] - TSH Performed By: #### L 500.4050, L501.9985, L501.5200, L501.9520, L500.4100, L100.0100 #### [facility] [address] [place], [address] Magnesium measurement (mass/ volume)Ordered By: Kyle Noel on 01-26-2025 Magnesium (Unsp spec) [Mass/Vol] 2.5 mg/dL High 1.5-2.2 [facility] Mean corpuscular hemoglobin (MCH) determinationOrdered By: Kyle Noel on 01-26-2025 MCH (RBC) [Entitic mass] 31.7 pg 27.0-32.0 [facility] Mean corpuscular hemoglobin concentration (MCHC) determinationOrdered By: Kyle Noel on 01-26-2025 MCHC (RBC) [Mass/Vol] 32.7 g/dL 32-36 [facility] Mean platelet volume determi nationOrdered By: Kyle Noel on 01-26-2025 Platelet mean volume (Bld) [Entitic vol] 10.2 fL 6.2-12.0 [facility] Microscopic analysis of urin e for red blood cells (RBC)Ordered By: Kyle Noel on 01-26-2025 Microscopic analysis of urine for red blood cells (RBC) 0 SEEN /hpf 0-5 [facility] Monocyte percentageOrdered B y: Kyle Noel on 01-26-2025 Monocytes/100 WBC (Bld) 12.1 % High 0-10 [facility] Mucus LM Ql (Urine sed)Order ed By: Kyle Noel on 01-26-2025 Mucus Ql (Urine sed) 0 SEEN /hpf [facility] Neutrophil percentageOrdered By: Kyle Noel on 01-26-2025 Neutrophils/100 WBC (Bld) 61.9 % 47-70 [facility] Nitrite Test strip Ql (U)Ord ered By: Kyle Noel on 01-26-2025 Nitrite Ql (U) Negative Negative [facility] Nucleated red blood cell per centageOrdered By: Kyle Noel on 01-26-2025 Nucleated RBC/100 WBC (Bld) [Ratio] 0 % 0-5 [facility] Platelet countOrdered By: Piedad Noel on 01-26-2025 Platelets (Bld) [#/Vol] 228 10*3/uL 150-450 [facility] Potassium measurement (mass/ volume)Ordered By: Kyle Noel on 01-26-2025 Potassium (Unsp spec) [Mass/Vol] 4.2 mmol/L 3.3-5.1 [facility] Protein Test strip Ql (U)Ord ered By: Kyle Noel on 01-26-2025 Protein Ql (U) 15 mg/dl High Negative [facility] Protein+Creatinine Ratio,Uri neon 01-26-2025 PROT:CRE RATIO 54 mg/g CRE Normal 0-200 [facility] Comment on above: Performed By: #### L 501.0900, L400.0001 ####[facility] [address] [place], [address] Protein (U) [Mass/Vol] 12.1 mg/dL High 0.0-12.0 [facility] Comment on above: Performed By: #### L 501.0900, L400.0001 ####[facility] [address] [place], [address] RBC Auto (Bld) [#/Vol]Ordere d By: Kyle Noel on 01-26-2025 RBC (Bld) [#/Vol] 4.29 10*6/uL Low 4.6-6.2 [facility] Random urine creatinine levar urement (mass/volume)Ordered By: Kyle Noel on 01-26-2025 Creatinine Unsp time (U) [Mass/Vol] 223.00 mg/dL 39.00-259.0 0 [facility] Screening total cholesterol/ high density lipoprotein (HDL) cholesterol ratioOrdered By: Kyle Noel on 01-26-2025 Cholesterol.total/Nicole sterol in HDL [Mass ratio] 2.90 {ratio} [facility] Serum creatinine measurement (mass/volume)Ordered By: Kyle Noel on 01-26-2025 Creatinine [Mass/Vol] 1.26 mg/dL High 0.70-1.20 [facility] Serum globulin measurementOr dered By: Kyle Noel on 01-26-2025 Globulin (S) [Mass/Vol] 2.8 g/dL 2.2-4.2 [facility] Serum glucose measurement (m ass/volume)Ordered By: Kyle Noel on 01-26-2025 Glucose [Mass/Vol] 103 mg/dL High 70-99 [facility] Serum or plasma alanine cheung otransferase (ALT) measurementOrdered By: Kyle Noel on 01-26-2025 ALT [Catalytic activity/Vol] 17 U/L <47 [facility] Serum or plasma albumin levar urement (mass/volume)Ordered By: Kyle Noel on 01-26-2025 Albumin [Mass/Vol] 4.4 g/dL 3.4-4.8 [facility] Serum or plasma albumin/glob ulin mass ratioOrdered By: Kyle Noel on 01-26-2025 Albumin/Globulin [Mass ratio] 1.6 {ratio} 0.9-2.4 [facility] Serum or plasma alkaline tita sphatase measurementOrdered By: Kyle Noel on 01-26-2025 ALP [Catalytic activity/Vol] 81 U/L 40-129 [facility] Serum or plasma calcium levar urement (mass/volume)Ordered By: Kyle Noel on 01-26-2025 Calcium [Mass/Vol] 9.5 mg/dL 7.6-11.0 [facility] Serum or plasma cholesterol in HDL measurement (mass/volume)Ordered By: Kyle Noel on 01-26-2025 Cholesterol in HDL [Mass/Vol] 53 mg/dL >40 [facility] Comment on above: National Cholesterol Education Program (NCEP) guidelines:<40 mg/dL: Low HDL-cholesterol (major risk factor for CHD)>= 60 mg/dL: High HDL-cholesterol (negative risk factor for CHD)HDL-cholesterol is affected by a number of factors, e.g. smoking, exercise, hormones, sex and age. Serum or plasma cholesterol measurement (mass/volume)Ordered By: Kyle Noel on 01-26-2025 Cholesterol [Mass/Vol] 152 mg/dL <201 [facility] Comment on above: Cholesterol level, D esirable <200 mg/dLBorderline high cholesterol 200-239 mg/dLHigh cholesterol >=240 mg/dLRecommendations of the NCEP Adult Treatment Panel for the following risk-cutoff thresholds for the [place] population. Serum or plasma urea nitroge n measurement (mass/volume)Ordered By: Kyle Noel on 01-26-2025 Urea nitrogen [Mass/Vol] 23 mg/dL High 4-19 [facility] Sodium levelOrdered By: Kyle Noel on 01-26-2025 Sodium [Moles/Vol] 140 mmol/L 133-145 [facility] Squamous epithelial cells de tection in urine sediment by light microscopyOrdered By: Kyle Noel on 01-26-2025 Epithelial cells.squamous LM Ql (Urine sed) 0 SEEN /hpf 0-5 [facility] TSH DL <= 0.005 mIU/L QnOrde red By: Kyle Noel on 01-26-2025 TSH Qn 3.590 uIU/mL 0.300-4.200 [facility] Thyroid Stim Hormone (TSH)on 01-26-2025 TSH 3.590 uIU/mL Normal 0.300-4.200 [facility] Comment on above: Order Comment: Order Date: 01/26/25 Order Info: [id number] - CMP Order Info: [id number] - LIPID Order Info: [id number] - MG Order Info: [id number] - TSH Performed By: #### L 500.4050, L501.9985, L501.5200, L501.9520, L500.4100, L100.0100 #### [facility] [address] [facility] [address] Total proteinOrdered By: Amanuel Noel on 01-26-2025 Protein [Mass/Vol] 7.1 g/dL 5.9-8.4 [facility] Triglycerides measurementOrd ered By: Kyle Noel on 01-26-2025 Triglyceride [Mass/Vol] 126 mg/dL <199 [facility] Comment on above: The drugs N-Acetylcy steine and Metamizole may falsely depress this assay. Normal range: <150 mg/dLBorderline High: 150-199 mg/dLHigh: 200-499 mg/dLVery High: >500 mg/dL Urinalysis, Completeon 01-26 BACTERIA 0 SEEN Normal None Seen [facility] Comment on above: Order Comment: CLEAN CATCH Performed By: #### L 501.0900, L400.0001 ####[facility] [address] [place], [address] EPI,SQUAMOUS 0 SEEN Normal 0-5 [facility] Comment on above: Order Comment: CLEAN CATCH Performed By: #### L 501.0900, L400.0001 ####[facility] [address] [place], [address] Mucus Ql (Urine sed) 0 SEEN Normal [facility] Comment on above: Order Comment: CLEAN CATCH Performed By: #### L 501.0900, L400.0001 ####[facility] [address] [place], [address] RBC 0 SEEN Normal 0-5 [facility] Comment on above: Order Comment: CLEAN CATCH Performed By: #### L 501.0900, L400.0001 ####[facility] [address] [place], [address] WBC 0 SEEN Normal 0-5 [facility] Comment on above: Order Comment: CLEAN CATCH Performed By: #### L 501.0900, L400.0001 ####[facility] [address] [place], [address] Urine clarityOrdered By: Amanuel Noel on 01-26-2025 Clarity (U) Clear Clear [facility] Urine color determinationOrd ered By: Kyle Noel on 01-26-2025 Color (U) Yellow Yellow [facility] Urine glucose detectionOrder ed By: Kyle Noel on 01-26-2025 Glucose Ql (U) Normal mg/dl Normal [facility] Urine leukocyte esterase det ection by dipstickOrdered By: Kyle Noel on 01-26-2025 Leukocyte esterase Test strip Ql (U) 25 /ul High Negative [facility] Urine pHOrdered By: Kyle whitaker on 01-26-2025 pH (U) 6.5 [pH] 5.0 - 8.0 [facility] Urine protein measurement (m ass/volume)Ordered By: Kyle Noel on 01-26-2025 Protein (U) [Mass/Vol] 12.1 mg/dL High 0.0-12.0 [facility] Urine protein/creatinine mas s ratioOrdered By: Kyle Noel on 01-26-2025 Protein/Creatinine (U) [Mass ratio] 54 mg/g CRE 0-200 [facility] Urine sediment bacteria coun t by microscopy (number/high power field)Ordered By: Kyle Noel on 01-26-2025 Bacteria LM.HPF (Urine sed) [#/Area] 0 /[HPF] None Seen [facility] Urine specific gravity measu rementOrdered By: Kyle Noel on 01-26-2025 Specific gravity (U) [Rel density] 1.015 1.002-1.030 [facility] Urine urobilinogen measureme ntOrdered By: Kyle Noel on 01-26-2025 Urobilinogen Ql (U) Normal mg/dl Normal [facility] Vitamin B12on 01-26-2025 Cobalamin (Vitamin B12) [Mass/Vol] 974 pg/mL High 180-914 [facility] Comment on above: Order Comment: Order Date: 01/26/25Order Info: [id number] - CMPOrder Info: [id number] - LIPIDOrder Info: [id number] - MGOrder Info: 301-3 - TSH Performed By: #### L 503.0106, L506.1001 ####[facility] [address] [place], [place], [id number] Vitamin B12 ser/plasOrdered By: Kyle Noel on 01-26-2025 Cobalamin (Vitamin B12) [Mass/Vol] 974 pg/mL High 180-914 [facility] Vitamin D,25 Hydroxyon 01-26 Vitamin D 25-OH 45.3 ng/mL Normal 30-100 [facility] Comment on above: Order Comment: Order Date: 01/26/25Order Info: [id number] - CMPOrder Info: [id number] - LIPIDOrder Info: - MGOrder Info: [id number] - TSH Result Comment: [place] min D Status Deficiency: <20 ng/mL (50nmol/L) Insufficiency: 20-30 ng/mL (50-75 nmol/L) Sufficiency: 30-100 ng/mL (75-250 nmol/L) Toxicity: >100 ng/mL (>250 nmol/L) Performed By: #### L 503.0106, L506.1001 ####[facility] [address] [place], [place], [address] White blood cell (WBC) count Ordered By: Kyle Noel on 01-26-2025 WBC (Bld) [#/Vol] 5.9 10*3/uL 4.4-11.0 [facility] White blood cell countOrdere d By: Kyle Noel on 01-26-2025 White blood cell count 0 SEEN /hpf 0-5 [facility] OT General Evaluationon - OT General Evaluation [facility] Occupational Therapy [facility] [address] [place] [address] / REHABILITATION SERVICES INITIAL EVALUATION MR#: [id number] Acct: [id number] Name: TRINA SAMUEL Rep #: [id number] : 1945 79 From: Chitra VILLARREAL/GWENDOLYN Meyers Referring Dr.: Dr. Kyle Noel MD Status: REG R Insurance: [facility] Date: SELF PAY INSURANCE Patient's Visit Information Visit Information Visit Information: TRINA SAMUEL is a 79 year old M, referred to Occupational Therapy by Dr. Kyle Noel MD, with a diagnosis of right wrist pain. Date of Evaluation: 11/24/24 Occupational Therapist: CHERELLE Ardon/GWENDOLYN Meyers Subjective Subjective: This 79-year-old male was seen for OT eval with dx of right wrist pain. 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 pt states this right wrist pain has been bothering him on and off for some time. pt states his wrist started to bother him and he could not sleep, gas pain with resistive wt. bearing on to his hands ie push-ups etc. pt states he is not sure what triggered it. pt would like to know what he can do to strengthen is arm. pt very active with exercise and helps his who has PD. 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 left RD [address] 30 UD 10 Strength Retail Clerk: right 55# left 65# Lateral Pinch: right 22# left 18# Tripod Pinch: right18# left 18# Strength Comments: left RD [address] 30 UD 10 Sensation Sensation Comments: denies Quick DASH-Disab of Arm,Shoulder Hand Quick DASH Score: 0 Goals Goal:: pt will demo the ability to carry with forearm in N to decrease stress of Ulnar side of wrist and decrease pain to perform Daily tasks with pain no greater than 2/10. Goal:: pt will demo understanding of wrist/forearm mechanics and how to avoid placing pressure on ulnar side of wrist with lifting items to decrease strain on soft tissue structures by d.c Goal:: pt will demo understanding of using supportive bracing to provide support and protection with heavy work tasks by d/c Rehabilitation General Assessment: pt demo with increase right ulnar sided wrist pain with resistive stress while forearm is in supination, pt also demo increase pain with resistive wrist flexion in forearm pronated. Pt demo with weakness due to pain with daily tasks. pt would benefit from skilled OT services 2-3 visits to ed. pt on HEP and ed. on joint protection techniques, supportive bracing and risks of work through pain vs stopping. Pt demo understanding and agrees to POC. Rehabilitation Potential: Questionable Anticipated Interventions Anticipated Interventions: Strengthening, Orthoses, Joint Protection/Energy Conservation, Ergonomic Education, Education re assistive Equipment, Education re Diagnosis and Home Program Visit Plan Frequency: 1x/Week Duration: 2-4 Weeks General Plan: look at weightlifting alterative to limit stress on Ulnar side of wrist wrist support/bracing joint protection lilibeth TEXT: Thank you for the opportunity to evaluate your patient. For Medicare and Medicare HMO plans, please review the plan of care and approve it. It will need to be FAXED BACK to us at [phone] for Medicare purposes. Please let me know if there are questions or concerns regarding this plan of care. Physician Signature: Date: _ 11/24/24 1248 CC: Dr. Kyle Noel MD ANDREW Signed For Medicare only, by signing this I certify the plan of care. ___ Physicians Signature Date Normal [facility] Cardiovascular stress test r eportOrdered By: Gm Srinivasan on 11-11-2024 Study report [facility] [address] [place] [address] MR#: [id number] Acct: [id number] Name: TRINA SAMUEL Rep #: [id number] : 1945 79 From: Gm Srinivasan MD Primary Care: Dr. Kyle Noel MD Sta tus: REG CLI Referring Dr: Gm Srinivasan MD Sex: M C Stress Test Report Exercise myocardial perfusion stress test. 79-year-old man with a history of elevated calcium score Stress protocol: Resting EKG demonstrates normal sinus rhythm with a rate of 63 bpm resting bloodpressure is 144/74 mmHg. The patient exercised according to the regular Mat protocol for a total duration of 6-1/2 minutes attaining a maximum heart rate of139 bpm which was 98% of maximum predicted heart rate; the maximum workload was 8.5 metabolic equivalents. At rest there were no ST or T wave changes noted to suggest ischemia and at peak exercise upsloping ST changes only were noted whichdid not meet the criteria for ischemia. No clinical angina was noted the test was terminated due to the target heart rate being achieved/fatigue. The peak blood pressure was 202/70 mmHg. hypertensive response to exercise is noted. Rate-pressure product was 25,500. Myocardial perfusion protocol. 14.7 mCi of technetium 99m sestamibi was injected at rest. The patient exercised according to regular Mat protocol for total duration of 6-1/2 minutes and at peak exercise 44.4 mCi of technetium 99m sestamibi was injected stress images were obtained stress and rest images were reconstructed in comparing the short axis vertical long and horizontal long axis. Gated images were also obtained. Perfusion SPECT analysis: Review of the stress images demonstrate normal uptake of tracer noted in all areas of the myocardium. The resting images similarly demonstrate normal uptakeof tracer noted in all areas of the myocardium. No areas of reversibility are noted to suggest ischemia no previous infarct was noted. Gated SPECT analysis: The gated ejection fraction is 64%. Conclusion: Normal exercise myocardial perfusion stress test at a moderate workload Preserved ejection fraction. 11/11/24 1340 Date _ Gm Srinivasan MD CC: Dr. Gm Srinivasan MD; Dr. Kyle Noel MD ~ Date Dictated: 11/11/24 133 Date Transcribed: 11/11/241334 Regional Education Coordinator: [place] Signed [facility] Work Phone: Echo Completeon 11-11-[address] [facility] Cardiovascular Services [address] [place] [address] Echo Complete 11/11/24 0838 MR#: [id number] Acct: [id number] Name: TRINA SAMUEL Rep #: [id number] : 1945 79 From: Gm Srinivasan MD Attending Dr: Dr. Gm Srinivasan MD Status: TR[place] Ordering Dr: Gm Srinivasan MD Date: 11/11/24 Location: [facility] Sex: M C Admitted: Reason For Study Reason For Study: HTN Procedure This was a 2D Doppler, Color Flow transthoracic echocardiogram. Exam performed in department. Left Ventricle Normal LV size. Mild concentric left ventricular hypertrophy. Left ventricular systolic function is normal. The left ventricular ejection fraction is 60 %. No regional wall motion abnormalities noted. Right Ventricle Normal RV size. Normal systolic function. Atria Normal left atrium. Normal right atrium. Bubble contrast study is negative for PFO/ASD. Mitral Valve Normal mitral valve. Mild (1+) eccentric mitral valve insufficiency. Tricuspid Valve Normal tricuspid valve. Aortic Valve Trisinus/trileaflet aortic valve. Mild (1+) aortic valve insufficiency. Pulmonic Valve Normal pulmonic valve. Great Vessels Normal aortic root. The pulmonary artery is normal size. Inferior vena cava collapse with respiration. Pericardium/Pleural No pericardial effusion. Medication Performed a rapid injection of agitated mix of 9 cc saline and 1cc air to assess for atrial septal defect. MMode/2D Measurements Calculations LVIDd: 4.1 cm IVSd: 1.3 cm LVOT diam: 1.9 cm LVIDs: 2.5 cm LVPWd: 1.2 cm RVDd: 3.5 cm FS: 39.0 % LVOT area: 2.8 cm2 Ao root diam: 3.3 cm LAV(MOD-bp): 56.9 ml LVAd ap4: 28.1 cm2 LAV(MOD-bp) Indexed: 25.5 ml/m2 LVLd ap4: 8.3 cm LAV(MOD-sp2): 49.2 ml EDV(MOD-sp4): 79.2 ml LAV(MOD-sp4): 52.1 ml EDV(sp4-el): 80.6 ml LVAs ap4: 17.5 cm2 LVLs ap4: 7.5 cm ESV(MOD-sp4): 35.7 ml ESV(sp4-el): 34.7 ml EF(MOD-sp4): 54.9 % EF(sp4-el): 56.9 % LVAd ap2: 29.9 cm2 SV(MOD-sp4): 43.5 ml SV(MOD-sp2): 58.9 ml LVLd ap2: 8.5 cm SI(MOD-sp4): 19.5 ml/m2 SI(MOD-sp2): 26.4 ml/m2 EDV(MOD-sp2): 90.8 ml EDV(sp2-el): 89.4 ml LVAs ap2: 16.5 cm2 LVLs ap2: 7.4 cm ESV(MOD-sp2): 31.9 ml ESV(sp2-el): 31.5 ml EF(MOD-sp2): 64.8 % SV(sp4-el): 45.9 ml LA dimension(2D): 3.9 cm LA A4 area: 16.9 cm2 RA A4 area: 14.0 cm2 TAPSE: 2.2 cm Doppler Measurements Calculations MV E max adi: 49.7 cm/sec Lat Peak E' Adi: 7.3 cm/sec Med Peak E' Adi: 6.9 cm/sec MV A max adi: 67.9 cm/sec E/E' lat: 6.8 E/E' med: 7.2 MV E/A: 0.73 Ao V2 max: 180.7 cm/sec AI max adi: 392.6 cm/sec LV V1 max: 113.9 cm/sec Ao max P.1 mmHg AI max P.7 mmHg LV V1 max P.2 mmHg Ao V2 mean: 121.3 cm/sec LV V1 mean P.8 mmHg Ao mean P.8 mmHg AI dec slope: 224.7 cm/sec2 LV V1 mean: 77.8 cm/sec Ao V2 VTI: 37.6 cm AI P1/2t: 511.7 msec LV V1 VTI: 26.9 cm AV (velocity ratio): 0.72 JE(I,D): 2.0 cm2 JE(V,D): 1.8 cm2 SV(LVOT): 75.4 ml PA V2 max: 104.8 cm/sec ECHO/Echo Complete Interpretation Summary Normal LV size. Left ventricular systolic function is normal. The left ventricular ejection fraction is 60 %. Bubble contrast study is negative for PFO/ASD. Mild concentric left ventricular hypertrophy. ___ Ordering Physician: Gm Srinivasan Referring Physician: Kyle Noel Performed By: Giselle Miner RDCS 11/11/24 1253 Date Gm Srinivasan MD CC: Dr. Gm Srinivasan MD; Dr. Kyle Noel MD Date Dictated: 11/11/24837 Date Transcribed: 11/11/24 1253 Regional Education Coordinator: Signed Normal [facility] Echocardiogram study reportO rdered By: Gm Srinivasan on 11-11-[address] [facility] [place] [place] [address] Echo Complete 11/11/24837 MR#: [id number] Acct: [id number] Name: TRINA SAMUEL Rep #:[id number] : 1945 79 From: Gm Moore Attending Dr: Dr. Gm Srinivasan MD S tatus: REG CLI Ordering Dr: Gm Srinivasan MD Date: 06/27 Location: [facility] Sex: M C Admitted: Reason For Study Reason For Study: HTN Procedure This was a 2D Doppler, Color Flow transthoracic echocardiogram. Exam performed in department. Left Ventricle Normal LV size. Mild concentric left ventricular hypertrophy. Left ventricular systolic function is normal. The left ventricular ejection fraction is 60 %. No regional wall motion abnormalities noted. Right Ventricle Normal RV size. Normal systolic function. Atria Normal left atrium. Normal right atrium. Bubble contrast study is negative for PFO/ASD. Mitral Valve Normal mitral valve. Mild (1+) eccentric mitral valve insufficiency. Tricuspid Valve Normal tricuspid valve. Aortic Valve Trisinus/trileaflet aortic valve. Mild (1+) aortic valve insufficiency. Pulmonic Valve Normal pulmonic valve. Great Vessels Normal aortic root. The pulmonary artery is normal size. Inferior vena cava collapse with respiration. Pericardium/Pleural No pericardial effusion. Medication Performed a rapid injection of agitated mix of 9 cc saline and 1cc air to assessfor atrial septal defect. MMode/2D Measurements & Calculations LVIDd: 4.1 cm IVSd: 1.3 cm LVOT diam: 1.9 cm LVIDs: 2.5 cm LVPWd: 1.2 cm RVDd: 3.5 cm FS: 39.0 % LVOT area: 2.8 cm2 Ao root diam: 3.3 cm LAV(MOD-bp): 56.9 ml LVAd ap4: 28.1 cm2 LAV(MOD-bp) Indexed: 25.5 ml/m2 LVLd ap4: 8.3 cm LAV(MOD-sp2): 49.2 ml EDV(MOD-sp4): 79.2 ml LAV(MOD-sp4): 52.1 ml EDV(sp4-el): 80.6 ml LVAs ap4: 17.5 cm2 LVLs ap4: 7.5 cm ESV(MOD-sp4): 35.7 ml ESV(sp4-el): 34.7 ml EF(MOD-sp4): 54.9 % EF(sp4-el): 56.9 % LVAd ap2: 29.9 cm2 SV(MOD-sp4): 43.5 ml SV(MOD-sp2): 58.9 ml LVLd ap2: 8.5 cm SI(MOD-sp4): 19.5 ml/m2 SI(MOD-sp2): 26.4 ml/m2 EDV(MOD-sp2): 90.8 ml EDV(sp2-el): 89.4 ml LVAs ap2: 16.5 cm2 LVLs ap2: 7.4 cm ESV(MOD-sp2): 31.9 ml ESV(sp2-el): 31.5 ml EF(MOD-sp2): 64.8 % SV(sp4-el): 45.9 ml LA dimension(2D): 3.9 cm LA A4 area: 16.9 cm2 RA A4 area: 14.0 cm2 TAPSE: 2.2 cm Doppler Measurements & Calculations MV E max adi: 49.7 cm/sec Lat Peak E' Adi: 7.3 cm/sec Med Peak E' Adi: 6.9 cm/sec MV A max adi: 67.9 cm/sec E/E' lat: 6.8 E/E' med: 7.2 MV E/A: 0.73 Ao V2 max: 180.7 cm/sec AI max adi: 392.6 cm/sec LV V1 max: 113.9 cm/sec Ao max P.1 mmHg AI max P.7 mmHg LV V1 max P.2 mmHg Ao V2 mean: 121.3 cm/sec LV V1 mean P.8 mmHg Ao mean P.8 mmHg AI dec slope: 224.7 cm/sec2 LV V1 mean: 77.8 cm/sec Ao V2 VTI: 37.6 cm AI P1/2t: 511.7 msec LV V1 VTI: 26.9 cm AV (velocity ratio): 0.72 JE(I,D): 2.0 cm2 JE(V,D): 1.8 cm2 SV(LVOT): 75.4 ml PA V2 max: 104.8 cm/sec ECHO/Echo Complete Interpretation Summary Normal LV size. Left ventricular systolic function is normal. The left ventricular ejection fraction is 60 %. Bubble contrast study is negative for PFO/ASD. Mild concentric left ventricular hypertrophy. ___ Ordering Physician: Gm Srinivasan Referring Physician: Kyle Noel Performed By: Giselle Miner RDCS 11/11/24 1253 Date _ Gm Srinivasan MD CC: Dr. Gm Srinivasan MD; Dr. Kyle Noel MD ~ Date Dictated: 11/11/24 0838 Date Transcribed: 11/11/24 125 Regional Education Coordinator: Signed [facility] Work Phone: Stress Reporton 11-11-2024 Stress Report [facility] Services [address] [place] [address] MR#: [id number] Acct: [id number] Name: TRINA SAMUEL Rep #: [id number] : 1945 79 From: Gm Srinivasan MD Primary Care: Dr. Kyle Noel MD Status: REG CLI Referring Dr: Gm Srinivasan MD Sex: M C Stress Test Report Exercise myocardial perfusion stress test. 79-year-old man with a history of elevated calcium score Stress protocol: Resting EKG demonstrates normal sinus rhythm with a rate of 63 bpm resting blood pressure is 144/74 mmHg. The patient exercised according to the regular Mat protocol for a total duration of 6-1/2 minutes attaining a maximum heart rate of 139 bpm which was 98% of maximum predicted heart rate; the maximum workload was 8.5 metabolic equivalents. At rest there were no ST or T wave changes noted to suggest ischemia and at peak exercise upsloping ST changes only were noted which did not meet the criteria for ischemia. No clinical angina was noted the test was terminated due to the target heart rate being achieved/fatigue. The peak blood pressure was 202/70 mmHg. hypertensive response to exercise is noted. Rate-pressure product was 25,500. Myocardial perfusion protocol. 14.7 mCi of technetium 99m sestamibi was injected at rest. The patient exercised according to regular Mat protocol for total duration of 6-1/2 minutes and at peak exercise 44.4 mCi of technetium 99m sestamibi was injected stress images were obtained stress and rest images were reconstructed in comparing the short axis vertical long and horizontal long axis. Gated images were also obtained. Perfusion SPECT analysis: Review of the stress images demonstrate normal uptake of tracer noted in all areas of the myocardium. The resting images similarly demonstrate normal uptake of tracer noted in all areas of the myocardium. No areas of reversibility are noted to suggest ischemia no previous infarct was noted. Gated SPECT analysis: The gated ejection fraction is 64%. Conclusion: Normal exercise myocardial perfusion stress test at a moderate workload Preserved ejection fraction. 11/11/24 1340 Date Gm Srinivasan MD CC: Dr. Gm Srinivasan MD; Dr. Kyle Noel MD Date Dictated: 11/11/24 1335 Date Transcribed: 11/11/24 1335 Regional Education Coordinator: [place] Signed Normal [facility] Wrist min 3 Viewson 10-28-19 Wrist min 3 Views [facility] Imaging Services [address] [place], [place] [address] Wrist min 3 Views MR#: [id number] Acct: [id number] Name: TRINA SAMUEL Rep #: [id number] : 1945 M 79 From: Wes Alonso MD PCP: Dr. Kyle Noel MD Status: REG CLI Study: Wrist min 3 Views Date of Exam: 10/27/24 Exam# [id number] Ordering Dr: Kyle Noel MD EXAM: XR Right Wrist Complete, 3 or More Views CLINICAL INDICATION: PAIN TECHNIQUE: Frontal, lateral and oblique views of the right wrist. COMPARISON: No relevant prior studies available. FINDINGS: BONES/JOINTS: Healed fracture deformity of the proximal radius. No dislocation. SOFT TISSUES: Soft tissue swelling. No radiopaque foreign body. RAD/Wrist min 3 Views IMPRESSION: Healed fracture deformity of the proximal radius. Reading Location: [facility] CC: Dr. Kyle Noel MD Regional Education Coordinator: Signed Normal [facility] Brain W/WO Contraston 2024 Brain W/WO Contrast [facility] Imaging Services [address] [place], [place] [address] Brain W/WO Contrast MR#: [id number] Acct: [id number] Name: TRINA SAMUEL Rep #: [id number] : 1945 M 79 From: Arturo Moore PCP: Dr. Kyle Noel MD Status: REG CLI Study: Brain W/WO Contrast Date of Exam: 10/24/24 Exam# [id number] Ordering Dr: Kyle Noel MD PROCEDURE: BRAIN W/WO CONTRAST 10/24/2024 REASON FOR EXAM: TRIGEMINAL NEURALGIA. History of prostate cancer in 2002. 4-5 month history of left pre-auricular pain. Query trigeminal neuralgia. TECHNIQUE: Multiplanar, multisequence MRI of the brain and orbits is performed both before and after administration of 20 mL of intravenous Clariscan. COMPARISON: None. FINDINGS: Major intracranial flow voids are intact. No regional flow void is visualized. There is no evidence of intra-axial or extra-axial mass. There is no evidence of cerebral hemorrhage or cerebral edema. There is no evidence of midline shift. Ventricular system and cisterns are normal. A tiny cavum septum pellucidum is noted. Scattered tiny abnormal bright T2 foci are seen throughout the jaimes radiata and centrum semiovale regions bilaterally, becoming more patchy and confluent areas of more extensive disease in a periventricular location, especially about the posterior horns of both lateral ventricles. No concordant or discordant focus of diffusion restriction is identified. Pituitary gland and optic chiasm are unremarkable. Clivus is normal. Orbital contents are symmetrically normal. No retro-orbital mass or blood vessel is noted. Sinuses are normal. Calvarium is free of suspicious lesion. No abnormal enhancing focus is seen in the brain or leptomeninges. MRI/Brain W/WO Contrast IMPRESSION: Scattered supratentorial white matter findings are nonspecific but likely represent areas of gliosis due to chronic microangiopathy. Otherwise negative. Reading Location: [place] [address] CC: Dr. Kyle Noel MD Regional Education Coordinator: Signed Normal [facility] Magnetic resonance imaging r eportOrdered By: Arturo Ness on 10-24-2024 Study report [facility] Imaging Services [address] [place], [place] [address] Brain W/WO Contrast MR#: [id number] Acct: [id number] Name: TRINA SAMUEL Rep #: [id number] : 1945 M 79 From: Armando Ness MD PCP: Dr. Kyle Noel MD Status: RE G CLI Study:Brain W/WO Contrast Date of Exam: 10/24/24 Exam# [id number] Ordering Dr: Kyle Noel MD PROCEDURE: BRAIN W/WO CONTRAST 10/24/2024 REASON FOR EXAM: TRIGEMINAL NEURALGIA. History of prostate cancer in 2002. 4-5 month history ofleft pre-auricular pain. Query trigeminal neuralgia. TECHNIQUE: Multiplanar, multisequence MRI of the brain and orbits is performed both before and after administration of 20 mL of intravenous Clariscan. COMPARISON: None. FINDINGS: Major intracranial flow voids are intact. No regional flow void is visualized. There is no evidence of intra-axial or extra-axial mass. There is no evidence of cerebral hemorrhage or cerebral edema. There is no evidence of midline shift. Ventricular system and cisterns are normal. A tiny cavum septum pellucidum is noted. Scattered tiny abnormal bright T2 foci are seen throughout the jaimes radiata and centrum semiovale regions bilaterally, becoming more patchy and confluent areas of more extensive disease in a periventricular location, especially about the posterior horns of both lateral ventricles. No concordant or discordant focus of diffusion restriction is identified. Pituitary gland and optic chiasm are unremarkable. Clivus is normal. Orbital contents are symmetrically normal. No retro-orbital mass or blood vessel is noted. Sinuses are normal. Calvarium is free of suspicious lesion. No abnormal enhancing focus is seen in the brain or leptomeninges. MRI/Brain W/WO Contrast IMPRESSION: Scattered supratentorial white matter findings are nonspecific but likely represent areas of gliosis due to chronic microangiopathy. Otherwise negative. Reading Location: [place] [address] CC: Dr. Kyle Noel MD ~ Regional Education Coordinator: Signed [facility] Orbits for Foreign Bodyon Orbits for Foreign Body [facility] Services [address] [place] [id number] Orbits for Foreign Body MR#: [id number] Acct: [id number] Name: TRINA SAMUEL Rep #: [id number] : 1945 M 79 From: Wes Alonso MD PCP: Dr. Kyle Noel MD Status: REG CLI Study: Orbits for Foreign Body Date of Exam: 10/24/24 Exam# [id number] Ordering Dr: Kyle Noel MD EXAM: XR Orbits Foreign Body CLINICAL INDICATION: MRI CLEARANCE TECHNIQUE: Frontal view(s) of the orbits. COMPARISON: No relevant prior studies available. FINDINGS: BONES/JOINTS: Unremarkable. No acute fracture. SINUSES: Unremarkable. No air-fluid levels. SOFT TISSUES: Unremarkable. No radiopaque foreign body. RAD/Orbits for Foreign Body IMPRESSION: Normal orbital x-rays. No radiopaque foreign body in either orbit. Reading Location: [facility] CC: Dr. Kyle Noel MD Regional Education Coordinator: Signed Normal [facility] 12 Lead EKG performed by [facility] on 10-19-2024 12 Lead EKG performed by [facility] [address] [place] [address] 12 Lead EKG performed by [facility] 10/19/241406 MR#: [id number] Acct: [id number] Name: TRINA SAMUEL Rep #: [id number] : 1945 79 From: Gm Srinivasan MD Attending Dr: Dr. Gm Srinivasan MD Status: DEP A MB Ordering Dr: Gm Srinivasan MD Date: 10/19/24 [place] [facility] [place]: M C Admitted: [facility]/12 Lead EKG performed by [facility] ECG Report Interpretation -Sinus Rhythm WITHIN NORMAL LIMITSElectronically signed on 10/20/2024 at 07:38 by Gm Srinivasan [employer] Version [id number] 10/20/24 0741 Date Gm Srinivasan MD CC: Dr. Kyle Noel MD Date Dictated: 10/19/241406 Date Transcribed: 10/19/241406 Regional Education Coordinator: [place] Signed Normal [facility] Cardiology Visit Reporton Cardiology Visit Report [facility] [address] [place], [place] [address] OFFICE VISIT Date of Service: 10/19/24 MR#: [id number] Acct: [id number] Name: TRINA SAMUEL Rep #: [id number] : 1945 Provider: Dr. Gm Srinivasan MD Age/Sex: 79/M Location: [facility] Status: Signed HPI HPI History of Present Illness Details: 79-year-old man with a family history of coronary artery disease, hypertension, hyperlipidemia who is asymptomatic but wants to establish care and risk factor modified. He was in [place] until recently and underwent a coronary calcium score which demonstrated a left main score of 57, LAD of 320, left circumflex of 273 right coronary artery of 83. His total Agatston score was 733. He is completely asymptomatic he also had a blood flow screening test which did not demonstrate any significant stenosis in his neck or peripheral vascular and his aorta was also normal. He has had no neck arm or jaw discomfort suggest angina no dizziness or diaphoresis no near-syncope or syncope his physical exam is unremarkable his electrocardiogram demonstrates sinus rhythm with a rate of 77 bpm. Intake Vital Signs 10/19/24 14:16 Height 5 ft 11 in Weight: 240 lb BMI 33.5 BP 164/76 H Blood Pressure Location Lt brachial Position Sitting Respiration 16 Pulse 74 Pulse Source Monitor Intake Visit Reasons: EST (SELF) Emergency Medical Tech Required: No Accompanied by: Self Is patient in pain?: No Allergies bacitracin Allergy (Intermediate, Verified 10/19/24 14:12) Rash FD and C green no.3 Allergy (Intermediate, Verified 10/19/24 14:13) Rash adhesive Adverse Reaction (Intermediate, Verified 10/19/24 14:12) Rash polymyxin B Adverse Reaction (Intermediate, Verified 10/19/24 14:12) Rash Medications ???Medication ???Instructions ???Recorded ???Confirmed ???Type rosuvastatin 10 mg tablet 10 mg PO QDAY 09/20/24 10/19/24 Hi story amlodipine 10 mg tablet 10 mg PO QDAY #90 tabs 10/19/24 Rx ascorbic acid (vitamin C) 500 mg 500 mg PO QWEEK 10/19/24 10/19/24 History tablet aspirin 81 mg tablet,delayed 81 mg PO QDAY 10/19/24 10/19/24 Hi story release (Adult Aspirin Regimen) coenzyme Q10 30 mg capsule 30 mg PO QDAY 10/19/24 10/19/24 Hi story mecobalamin (vitamin B12) 1,000 1,000 mcg PO QDAY 10/19/24 5 History mcg lozenges tralokinumab-ldrm 150 mg/mL mg subcut 10/19/24 10/19/24 Histor y subcutaneous syringe (Adbry) Have you fallen in the past year?: No PFSH Medical History Chronic cough Caregiver stress Abnormal renal function finding DDD (degenerative disc disease) Hyperlipidemia Hypercholesteremia Essential (primary) hypertension Surgical History No history of previous surgery Family History Brother Coronary artery disease involving coronary bypass graft Social History Smoking Status: Never smoker alcohol intake: current substance use type: does not use ROS Const Const: Negative for fatigue, weakness, headache(s), daytime sleepiness or difficulty sleeping ENT ENT: Negative for headache(s), dizziness or Nosebleed/epistaxis Cardio Chest Pain: No Palpitations: No Edema: Bilateral (BLE-Trace at times ) Resp Respiratory: Negative for SOB with activity, SOB at rest, SOB orthopnea SOB lying down or Cough GI GI: Negative nausea, vomiting or heartburn Neuro Neuro: Negative for dizziness, lightheadedness, near syncope, headache(s) or weakness Endo Endo: Negative for fatigue Cardiology Exam Const Appearance: cooperative, healthy appearing, no acute distress, well developed and well groomed Nutritional Appearance: average body habitus and well nourished Orientation: alert, awake and oriented x3 Head Head: normal to inspection, normocephalic and atraumatic Ears: hearing grossly normal bilaterally and external ears normal Nose: external nose normal, nares normal, nasal mucous membranes and turbinates normal, septum normal and no nasal discharge Face and Sinus: face symmetric Mouth: oral mucosae normal, tongue normal, oropharynx normal and moist mucous membranes Teeth and gingiva: dentition normal Throat: posterior oropharynx normal, tonsils normal and uvula midline Eyes General: appearance normal, both eyes and all related structures Eyelids: eyelids normal Conjunctivae: conjunctivae normal Pupils: PERRL, normal by confrontation and accommodation normal EOM: EOM intact bilaterally Neck Neck: normal visual inspection, trachea midline and no JVD JVD: +5 Carotids: normal carotid upstroke and bounding pulses Chest Chest inspection (more content not included)... Normal [facility] Thyroglobulin w/Anti-TG ABon 10-12-2024 Anti-TG AB < 1.0 Normal 0.0-0.9 [facility] Comment on above: Result Comment: Thyr oglobulin Antibody measured by [employer] Methodology It should be noted that the presence of thyroglobulin antibodies may not be pathogenic nor diagnostic, especially at very low levels. The assay safety council director has found that four percent of individuals without evidence of thyroid disease or autoimmunity will have positive TgAb levels up to 4 IU/mL. Performed By: #### L 501.0900, L501.9985, L3300.6820, L3300.6900, L400.0001, L503.0106, L506.1001 ####[facility] [address] [place], [place], [id number] THYROGLOB QUANT 6.4 ng/mL Normal 1.4-29.2 [facility] Comment on above: Result Comment: Acco rding to the National Academy of Clinical Biochemistry, the reference interval for Thyroglobulin (TG) should be related to euthyroid patients and not for patients who underwent thyroidectomy. TG reference intervals for these patients depend on the residual mass of the thyroid tissue left after surgery. Establishing a post-operative baseline is recommended. The assay limit of quantitation is 0.1 ng/mL Thyroglobulin measured by [employer] Immunometric Assay Performed By: #### L 501.0900, L501.9985, L3300.6820, L3300.6900, L400.0001, L503.0106, L506.1001 ####[facility] [address] [place], [place], [id number] Thyroid Peroxidase ABon - THYR PEROX AB 12 IU/mL Normal 0-34 [facility] Comment on above: Result Comment: Perf ormed at: - [facility] [place] [id number] [place], [place] [id number] Semiconductor Development Technician: Fernando West PhD, Phone: [phone] Performed By: #### L 501.0900, L501.9367, L3300.6404, L3300.5370, L400.0001, L503.0106, L506.1001 ####[facility] [address] [place], [address] Absolute lymphocyte countOrd ered By: Kyle Noel on 10-11-2024 Lymphocytes Auto (Unsp spec) [#/Vol] 1.15 10*3/uL 0.83-4.51 [facility] Absolute neutrophil countOrd ered By: Kyle Noel on 10-11-2024 Neutrophils (Bld) [#/Vol] 4.0 10*3/uL 2.0-7.7 [facility] Anion gap in Serum or Plasma Ordered By: Kyle Noel on 10-11-2024 Anion gap [Moles/Vol] 11 mmol/L 5-15 [facility] Automated lymphocyte count a s percentage of total leukocytesOrdered By: Kyle Noel on 10-11-2024 Lymphocytes/100 WBC Auto (Unsp spec) 18.3 % Low 19-41 [facility] BUN/creatinine ratioOrdered By: Kyle Noel on 10-11-2024 Urea nitrogen/Creatinine [Mass ratio] 16.9 mg/mg 10-20 [facility] Basophil percentageOrdered B y: Kyle Noel on 10-11-2024 Basophils/100 WBC (Bld) 1.0 % 0-1 [facility] Bilirubin Test strip Ql (U)O rdered By: Kyle Noel on 10-11-2024 Bilirubin Ql (U) Negative Negative [facility] Bilirubin, totalOrdered By: Kyle Noel on 10-11-2024 Bilirubin [Mass/Vol] 0.64 mg/dL 0.00-1.30 [facility] CBC W/Diff, Automatedon 10-01 Absolute Lymph 1.15 X10 3/uL Normal 0.83-4.51 [facility] Comment on above: Order Comment: Order Date: 10/04/24Order Info: 0184-1 - CBCD Performed By: #### L 500.4100, L100.0100, L500.4050, L501.9520, L501.5200, L509.1000 ####[facility] [address] [place], [address] Absolute Neut 4.0 X10 3/uL Normal 2.0-7.7 [facility] Comment on above: Order Comment: Order Date: 10/04/24Order Info: 0184-1 - CBCD Performed By: #### L 500.4100, L100.0100, L500.4050, L501.9520, L501.5200, L509.1000 ####[facility] [address] [place], [address] Basophils/100 WBC (Bld) 1.0 % Normal 0-1 [facility] Comment on above: Order Comment: Order Date: 10/04/24Order Info: 0184-1 - CBCD Performed By: #### L 500.4100, L100.0100, L500.4050, L501.9520, L501.5200, L509.1000 ####[facility] [address] [place], [address] Eosinophils/100 WBC (Bld) 5.7 % High 0-5 [facility] Comment on above: Order Comment: Order Date: 10/04/24Order Info: 0184-1 - CBCD Performed By: #### L 500.4100, L100.0100, L500.4050, L501.9520, L501.5200, L509.1000 ####[facility] [address] [place], [address] Erythrocyte distribution width (RBC) [Ratio] 12.7 % Normal 11.6-14.6 [facility] Comment on above: Order Comment: Order Date: 10/04/24Order Info: 0184-1 - CBCD Performed By: #### L 500.4100, L100.0100, L500.4050, L501.9520, L501.5200, L509.1000 ####[facility] [address] [place], [address] Hematocrit (Bld) [Volume fraction] 46.3 % Normal 40-54 [facility] Comment on above: Order Comment: Order Date: 10/04/24Order Info: 0184-1 - CBCD Performed By: #### L 500.4100, L100.0100, L500.4050, L501.9520, L501.5200, L509.1000 ####[facility] [address] [facility] [place], [address] Hemoglobin (Bld) [Mass/Vol] 15.0 g/dL Normal 13.0-16.5 [facility] Comment on above: Order Comment: Order Date: 10/04/24Order Info: 0184-1 - CBCD Performed By: #### L 500.4100, L100.0100, L500.4050, L501.9520, L501.5200, L509.1000 ####[facility] [address] [facility] [place], [address] IG% 0.500 Normal 0.0-0.9 [facility] Comment on above: Order Comment: Order Date: 10/04/24Order Info: 0184-1 - CBCD Result Comment: IG% - Immature Granulocytes (promyelocytes, myelocytes and metamyelocytes) > 1% indicates that a LEFT SHIFT is Present. Performed By: #### L 500.4100, L100.0100, L500.4050, L501.9520, L501.5200, L509.1000 ####[facility] [address] [place], [address] Lymphocytes/100 WBC (Bld) 18.3 % Low 19-41 [facility] Comment on above: Order Comment: Order Date: 10/04/24Order Info: 0184- - CBCD Performed By: #### L 500.4100, L100.0100, L500.4050, L501.9520, L501.5200, L509.1000 ####[facility] [address] [place], [address] MCH (RBC) [Entitic mass] 31.1 pg Normal 27.0-32.0 [facility] Comment on above: Order Comment: Order Date: 10/04/24Order Info: 0184- - CBCD Performed By: #### L 500.4100, L100.0100, L500.4050, L501.9520, L501.5200, L509.1000 ####[facility] [address] [place], [address] MCHC (RBC) [Mass/Vol] 32.4 g/dL Normal 32-36 [facility] Comment on above: Order Comment: Order Date: 10/04/24Order Info: 018- - CBCD Performed By: #### L 500.4100, L100.0100, L500.4050, L501.9520, L501.5200, L509.1000 ####[facility] [address] [place], [address] MCV (RBC) [Entitic vol] 96.1 fL High 80-94 [facility] Comment on above: Order Comment: Order Date: 10/04/24Order Info: [id number]- - CBCD Performed By: #### L 500.4100, L100.0100, L500.4050, L501.9520, L501.5200, L509.1000 ####[facility] [address] [place], [address] Monocytes/100 WBC (Bld) 11.1 % High 0-10 [facility] Comment on above: Order Comment: Order Date: 10/04/24Order Info: [id number]- - CBCD Performed By: #### L 500.4100, L100.0100, L500.4050, L501.9520, L501.5200, L509.1000 ####[facility] [address] [place], [address] Neutrophils/100 WBC (Bld) 63.4 % Normal 47-70 [facility] Comment on above: Order Comment: Order Date: 10/04/24Order Info: [id number] - CBCD Performed By: #### L 500.4100, L100.0100, L500.4050, L501.9520, L501.5200, L509.1000 ####[facility] [address] [place], [address] Nucleated RBC (Bld) [#/Vol] 0 10*3/uL Normal 0-5 [facility] Comment on above: Order Comment: Order Date: 10/04/24Order Info: [id number] - CBCD Performed By: #### L 500.4100, L100.0100, L500.4050, L501.9520, L501.5200, L509.1000 ####[facility] [address] [place], [address] Platelet mean volume (Bld) [Entitic vol] 10.0 fL Normal 6.2-12.0 [facility] Comment on above: Order Comment: Order Date: 10/04/24Order Info: [id number] - CBCD Performed By: #### L 500.4100, L100.0100, L500.4050, L501.9520, L501.5200, L509.1000 ####[facility] [address] [place], [address] Platelets (Bld) [#/Vol] 226 10*3/uL Normal 150-450 [facility] Comment on above: Order Comment: Order Date: 10/04/24Order Info: [id number] - CBCD Performed By: #### L 500.4100, L100.0100, L500.4050, L501.9520, L501.5200, L509.1000 ####[facility] [address] [place], [address] RBC (Bld) [#/Vol] 4.82 10*6/uL Normal 4.6-6.2 [facility] Comment on above: Order Comment: Order Date: 10/04/24Order Info: [id number] - CBCD Performed By: #### L 500.4100, L100.0100, L500.4050, L501.9520, L501.5200, L509.1000 ####[facility] [address] [place], [address] RDW SD 45.1 fl High 35.1-43.9 [facility] Comment on above: Order Comment: Order Date: 10/04/24Order Info: [id number] - CBCD Performed By: #### L 500.4100, L100.0100, L500.4050, L501.9520, L501.5200, L509.1000 ####[facility] [address] [place], [address] WBC (Bld) [#/Vol] 6.3 10*3/uL Normal 4.4-11.0 [facility] Comment on above: Order Comment: Order Date: 10/04/24Order Info: [id number] - CBCD Performed By: #### L 500.4100, L100.0100, L500.4050, L501.9520, L501.5200, L509.1000 ####[facility] [address] [place], [address] Calculated very low density lipoprotein (VLDL) cholesterol measurementOrdered By: Kyle Noel on 10-11-2024 Calculated very low density lipoprotein (VLDL) cholesterol measurement 34 mg/dL -40 [facility] VLDL Cholesterol 34 mg/dL -40 [facility] Carbon dioxide, total [Moles /volume] in Central venous bloodOrdered By: Kyle Noel on 10-11-2024 CO2 [Moles/Vol] 23.0 mmol/L 21.0-32.0 [facility] Chloride assayOrdered By: Piedad Noel on 10-11-2024 Chloride [Moles/Vol] 104 mmol/L 98-108 [facility] Comprehensive Metabolic Prof ilon 10-11-2024 Albumin [Mass/Vol] 4.2 g/dL Normal 3.4-4.8 [facility] Comment on above: Order Comment: Order Date: 10/04/24Order Info: 86-1 - CMPOrder Info: [id number] - LIPIDOrder Info: [id number] - MGOrder Info: [id number] - TSH Performed By: #### L 500.4100, L100.0100, L500.4050, L501.9520, L501.5200, L509.1000 ####[facility] [address] [place], [place], [address] Albumin/Globulin [Mass ratio] 1.4 {ratio} Normal 0.9-2.4 [facility] Comment on above: Order Comment: Order Date: 10/04/24Order Info: [id number] - CMPOrder Info: [id number] - LIPIDOrder Info: [id number] - MGOrder Info: [id number] - TSH Performed By: #### L 500.4100, L100.0100, L500.4050, L501.9520, L501.5200, L509.1000 ####[facility] [address] [place], [place], [address] ALK PHOS 89 U/L Normal 40-129 [facility] Comment on above: Order Comment: Order Date: 10/04/24Order Info: [id number] - CMPOrder Info: [id number] - LIPIDOrder Info: [id number] - MGOrder Info: [id number] - TSH Performed By: #### L 500.4100, L100.0100, L500.4050, L501.9520, L501.5200, L509.1000 ####[facility] [address] [place], [address] ALT [Catalytic activity/Vol] 17 U/L Normal <=46 [facility] Comment on above: Order Comment: Order Date: 10/04/24Order Info: [id number] - CMPOrder Info: [id number] - LIPIDOrder Info: [id number] - MGOrder Info: [id number] - TSH Performed By: #### L 500.4100, L100.0100, L500.4050, L501.9520, L501.5200, L509.1000 ####[facility] [address] [place], [address] AST [Catalytic activity/Vol] 22 U/L Normal <=37 [facility] Comment on above: Order Comment: Order Date: 10/04/24Order Info: 86-1 - CMPOrder Info: [id number] - LIPIDOrder Info: [id number] - MGOrder Info: [id number] - TSH Performed By: #### L 500.4100, L100.0100, L500.4050, L501.9520, L501.5200, L509.1000 ####[facility] [address] [place], [place], [address] Bilirubin [Mass/Vol] 0.64 mg/dL Normal 0.00-1.30 [facility] Comment on above: Order Comment: Order Date: 10/04/24Order Info: [id number] - CMPOrder Info: [id number] - LIPIDOrder Info: [id number] - MGOrder Info: [id number] - TSH Performed By: #### L 500.4100, L100.0100, L500.4050, L501.9520, L501.5200, L509.1000 ####[facility] [address] [place], [address] BUN/CRE 16.9 RATIO Normal 10-20 [facility] Comment on above: Order Comment: Order Date: 10/04/24Order Info: [id number] - CMPOrder Info: [id number] - LIPIDOrder Info: [id number] - MGOrder Info: [id number] - TSH Performed By: #### L 500.4100, L100.0100, L500.4050, L501.9520, L501.5200, L509.1000 ####[facility] [address] [place], [address] Calcium [Mass/Vol] 9.4 mg/dL Normal 7.6-11.0 [facility] Comment on above: Order Comment: Order Date: 10/04/24Order Info: [id number] - CMPOrder Info: [id number] - LIPIDOrder Info: [id number] - MGOrder Info: [id number] - TSH Performed By: #### L 500.4100, L100.0100, L500.4050, L501.9520, L501.5200, L509.1000 ####[facility] [address] [place], [address] Chloride [Moles/Vol] 104 mmol/L Normal 98-108 [facility] Comment on above: Order Comment: Order Date: 10/04/24Order Info: [id number] - CMPOrder Info: [id number] - LIPIDOrder Info: [id number] - MGOrder Info: [id number] - TSH Performed By: #### L 500.4100, L100.0100, L500.4050, L501.9520, L501.5200, L509.1000 ####[facility] [address] [place], [address] CO2 [Moles/Vol] 23.0 mmol/L Normal 21.0-32.0 [facility] Comment on above: Order Comment: Order Date: 10/04/24Order Info: [id number] - CMPOrder Info: [id number] - LIPIDOrder Info: [id number] - MGOrder Info: 3 - TSH Performed By: #### L 500.4100, L100.0100, L500.4050, L501.9520, L501.5200, L509.1000 ####[facility] [address] [place], [address] Creatinine [Mass/Vol] 1.17 mg/dL Normal 0.70-1.20 [facility] Comment on above: Order Comment: Order Date: 10/04/24Order Info: [id number] - CMPOrder Info: [id number] - LIPIDOrder Info: [id number] - MGOrder Info: [id number] - TSH Performed By: #### L 500.4100, L100.0100, L500.4050, L501.9520, L501.5200, L509.1000 ####[facility] [address] [place], [address] GAP 11 Normal 5-15 [facility] Comment on above: Order Comment: Order Date: 10/04/24Order Info: 07-1 - CMPOrder Info: [id number] - LIPIDOrder Info: [id number] - MGOrder Info: 6-3 - TSH Performed By: #### L 500.4100, L100.0100, L500.4050, L501.9520, L501.5200, L509.1000 ####[facility] [address] [place], [address] GFR/1.73 sq M.predicted among non-blacks MDRD (S/P/Bld) [Vol rate/Area] 63 mL/min/{1.73_m2} Normal >60 [facility] Comment on above: Order Comment: Order Date: 10/04/24Order Info: [id number] - CMPOrder Info: [id number] - LIPIDOrder Info: [id number] - MGOrder Info: [id number] - TSH Result Comment: mL/m in/1.73m2 CKD-EPI Creatinine Equation (2020) Performed By: #### L 500.4100, L100.0100, L500.4050, L501.9520, L501.5200, L509.1000 ####[facility] [address] [place], [address] Globulin (S) [Mass/Vol] 2.9 g/dL Normal 2.2-4.2 [facility] Comment on above: Order Comment: Order Date: 10/04/24Order Info: [id number] - CMPOrder Info: [id number] - LIPIDOrder Info: [id number] - MGOrder Info: [id number] - TSH Performed By: #### L 500.4100, L100.0100, L500.4050, L501.9520, L501.5200, L509.1000 ####[facility] [address] [place], [address] Glucose [Mass/Vol] 106 mg/dL High 70-99 [facility] Comment on above: Order Comment: Order Date: 10/04/24Order Info: [id number] - CMPOrder Info: [id number] - LIPIDOrder Info: [id number] - MGOrder Info: [id number] - TSH Performed By: #### L 500.4100, L100.0100, L500.4050, L501.9520, L501.5200, L509.1000 ####[facility] [address] [place], [address] Potassium [Moles/Vol] 4.1 mmol/L Normal 3.3-5.1 [facility] Comment on above: Order Comment: Order Date: 10/04/24Order Info: [id number] - CMPOrder Info: [id number] - LIPIDOrder Info: [id number] - MGOrder Info: [id number] - TSH Performed By: #### L 500.4100, L100.0100, L500.4050, L501.9520, L501.5200, L509.1000 ####[facility] [address] [place], [address] Sodium [Moles/Vol] 139 mmol/L Normal 133-145 [facility] Comment on above: Order Comment: Order Date: 10/04/24Order Info: [id number] - CMPOrder Info: [id number] - LIPIDOrder Info: [id number] - MGOrder Info: [id number] - TSH Performed By: #### L 500.4100, L100.0100, L500.4050, L501.9520, L501.5200, L509.1000 ####[facility] [address] [place], [address] T PROT 7.1 g/dL Normal 5.9-8.4 [facility] Comment on above: Order Comment: Order Date: 10/04/24Order Info: [id number] - CMPOrder Info: [id number] - LIPIDOrder Info: [id number] - MGOrder Info: [id number] - TSH Performed By: #### L 500.4100, L100.0100, L500.4050, L501.9520, L501.5200, L509.1000 ####[facility] [address] [place], [address] Urea nitrogen [Mass/Vol] 20 mg/dL High 4-19 [facility] Comment on above: Order Comment: Order Date: 10/04/24Order Info: [id number] - CMPOrder Info: [id number] - LIPIDOrder Info: [id number] - MGOrder Info: [id number] - TSH Performed By: #### L 500.4100, L100.0100, L500.4050, L501.9520, L501.5200, L509.1000 ####[facility] [address] [place], [place], [address] Creatinine Unsp time (U) [Ma ss/Vol]Ordered By: Kyle Noel on 10-11-2024 Creatinine (U) [Mass/Vol] 199.00 mg/dL 39-259 [facility] Eosinophil percentageOrdered By: Kyle Noel on 10-11-2024 Eosinophils/100 WBC (Bld) 5.7 % High 0-5 [facility] Epithelial cells.squamous LM Ql (Urine sed)Ordered By: Kyle Noel on 10-11-2024 Epithelial cells.squamous LM.HPF (Urine sed) [#/Area] 0 /[HPF] 0-5 [facility] Erythrocyte distribution wid th ratioOrdered By: Kyle Noel on 10-11-2024 Erythrocyte distribution width (RBC) [Ratio] 12.7 % 11.6-14.6 [facility] Erythrocyte distribution wid th standard deviationOrdered By: Kyle Noel on 10-11-2024 Erythrocyte distribution width (RBC) [Entitic vol] 45.1 fL High 35.1-43.9 [facility] Erythrocyte distribution width (RBC) [Ratio] 45.1 fl High 35.1-43.9 [facility] GFR/1.73 sq M.predicted jeremy g non-blacks MDRD (S/P/Bld) [Vol rate/Area]Ordered By: Kyle Noel on 10-11-2024 Estimated GFR (MDRD) Non-Af Amer 63 >60 [facility] Comment on above: mL/min/1.73m2 CKD-EP I Creatinine Equation (2020) Glomerular filtration rate ( GFR) estimation/1.73 sq m using serum, plasma, or whole bOrdered By: Kyle Noel on 10-11-2024 GFR/1.73 sq M.predicted among non-blacks MDRD (S/P/Bld) [Vol rate/Area] 63 mL/min/{1.73_m2} >60 [facility] Comment on above: mL/min/1.73m2 CKD-EP I Creatinine Equation (2020) Glucose Ql (U)Ordered By: Piedad Noel on 10-11-2024 Urine Glucose (UA) Normal mg/dl Normal [facility] Hematocrit Auto (Bld) [Volum e fraction]Ordered By: Kyle Noel on 10-11-2024 Hematocrit (Bld) [Volume fraction] 46.3 % 40-54 [facility] Hemoglobin A1con 10-11-2024 HbA1c (Bld) [Mass fraction] 6.2 % Normal <=5.6 [facility] Comment on above: Order Comment: HERACLIO Harrison ADD A1C TO BLOOD DRAWN THIS AM PER Performed By: #### L 501.0900, L501.9985, L3300.6820, L3300.6900, L400.0001, L503.0106, L506.1001 ####[facility] [address] [place], [place], [address] Hemoglobin A1c percentageOrd ered By: Kyle Noel on 10-11-2024 HbA1c (Bld) [Mass fraction] 6.2 % >5.7 [facility] Hemoglobin measurementOrdere d By: Kyle Noel on 10-11-2024 Hemoglobin (Bld) [Mass/Vol] 15.0 g/dL 13.0-16.5 [facility] Immature granulocytes/100 WB C Auto (Bld)Ordered By: Kyle Noel on 10-11-2024 Immature granulocytes/100 WBC (Bld) 0.500 % 0.0-0.9 [facility] Comment on above: IG% - Immature Granu locytes (promyelocytes, myelocytes and metamyelocytes) > 1% indicates that a LEFT SHIFT is Present. Ketones Test strip Ql (U)Ord ered By: Kyle Noel on 10-11-2024 Ketones Ql (U) Negative Negative [facility] L503.0106on 10-11-2024 Cobalamin (Vitamin B12) [Mass/Vol] 908 pg/mL Normal 180-914 [facility] Comment on above: Order Comment: Order Date: 10/04/24Order Info: [id number] - CMPOrder Info: [id number] - LIPIDOrder Info: [id number] - MGOrder Info: [id number] - TSH Performed By: #### L 501.0900, L501.9985, L3300.6820, L3300.6900, L400.0001, L503.0106, L506.1001 ####[facility] [address] [place], [address] L506.1001on 10-11-2024 Vitamin D 25-OH 29.9 ng/mL Low 30-100 [facility] Comment on above: Order Comment: Order Date: 10/04/24Order Info: [id number] - CMPOrder Info: [id number] - LIPIDOrder Info: [id number] - MGOrder Info: [id number] - TSH Result Comment: [place] min D Status Deficiency: <20 ng/mL (50nmol/L) Insufficiency: 20-30 ng/mL (50-75 nmol/L) Sufficiency: 30-100 ng/mL (75-250 nmol/L) Toxicity: >100 ng/mL (>250 nmol/L) Performed By: #### L 501.0900, L501.9985, L3300.6820, L3300.6900, L400.0001, L503.0106, L506.1001 ####[facility] [address] [place], [address] LDL calc ser/plasOrdered By: Kyle Noel on 10-11-2024 Cholesterol in LDL [Mass/Vol] 71 mg/dL [facility] Comment on above: Gwwojbllwf=425-651 m g/dL & Higher Xfgf=669 mg/dL or greater LDL Cholesterol, Calculated 71 mg/dL [facility] Comment on above: Ekvvguxulr=325-686 m g/dL & Higher Hlbo=511 mg/dL or greater Laboratory - Chemistry and C hemistry - challengeOrdered By: Kyle Noel on 10-11-2024 AST [Catalytic activity/Vol] 22 U/L <38 [facility] Lipid Profileon 10-11-2024 CHOL:HDL 3.17 Normal [facility] Comment on above: Order Comment: Order Date: 10/04/24Order Info: [id number] - CMPOrder Info: [id number] - LIPIDOrder Info: [id number] - MGOrder Info: [id number] - TSH Performed By: #### L 500.4100, L100.0100, L500.4050, L501.9520, L501.5200, L509.1000 ####[facility] [address] [place], [place], [id number] Cholesterol [Mass/Vol] 153 mg/dL Normal <=200 [facility] Comment on above: Order Comment: Order Date: 10/04/24Order Info: [id number] - CMPOrder Info: [id number] - LIPIDOrder Info: [id number] - MGOrder Info: [id number] - TSH Result Comment: Chol esterol level, Desirable <200 mg/dL Borderline high cholesterol 200-239 mg/dL High cholesterol >=240 mg/dL Recommendations of the NCEP Adult Treatment Panel for the following risk-cutoff thresholds for the [place] population. Performed By: #### L 500.4100, L100.0100, L500.4050, L501.9520, L501.5200, L509.1000 ####[facility] [address] [place], [address] Cholesterol in HDL [Mass/Vol] 48 mg/dL Normal [facility] Comment on above: Order Comment: Order Date: 10/04/24Order Info: [id number] - CMPOrder Info: [id number] - LIPIDOrder Info: [id number] - MGOrder Info: [id number] - TSH Result Comment: Odalys onal Cholesterol Education Program (NCEP) guidelines: <40 mg/dL: Low HDL-cholesterol (major risk factor for CHD) >= 60 mg/dL: High HDL-cholesterol (negative risk factor for CHD) HDL-cholesterol is affected by a number of factors, e.g. smoking, exercise, hormones, sex and age. Performed By: #### L 500.4100, L100.0100, L500.4050, L501.9520, L501.5200, L509.1000 ####[facility] [address] [place], [address] Cholesterol in LDL [Mass/Vol] 71 mg/dL Normal [facility] Comment on above: Order Comment: Order Date: 10/04/24Order Info: [id number] - CMPOrder Info: [id number] - LIPIDOrder Info: [id number] - MGOrder Info: [id number] - TSH Result Comment: Bord giyezj=601-498 mg/dL Higher Kqgz=209 mg/dL or greater Performed By: #### L 500.4100, L100.0100, L500.4050, L501.9520, L501.5200, L509.1000 ####[facility] [address] [place], [address] Cholesterol in VLDL [Mass/Vol] 34 mg/dL Normal 5-40 [facility] Comment on above: Order Comment: Order Date: 10/04/24Order Info: [id number] - CMPOrder Info: [id number] - LIPIDOrder Info: [id number] - MGOrder Info: [id number] - TSH Performed By: #### L 500.4100, L100.0100, L500.4050, L501.9520, L501.5200, L509.1000 ####[facility] [address] [place], [place], [address] Triglyceride [Mass/Vol] 169 mg/dL Normal [facility] Comment on above: Order Comment: Order Date: 10/04/24Order Info: [id number] - CMPOrder Info: [id number] - LIPIDOrder Info: [id number] - MGOrder Info: [id number] - TSH Result Comment: The drugs N-Acetylcysteine and Metamizole may falsely depress this assay. Normal range: <150 mg/dL Borderline High: 150-199 mg/dL High: 200-499 mg/dL Very High: >500 mg/dL Performed By: #### L 500.4100, L100.0100, L500.4050, L501.9520, L501.5200, L509.1000 ####[facility] [address] [place], [place], [address] Lymphocytes Auto (Unsp spec) [#/Vol]Ordered By: Kyle Noel on 10-11-2024 Lymphocytes (Bld) [#/Vol] 1.15 10*3/uL 0.83-4.51 [facility] Lymphocytes/100 WBC Auto (Un sp spec)Ordered By: Kyle Noel on 10-11-2024 Lymphocytes/100 WBC (Bld) 18.3 % Low 19-41 [facility] MCV (mean corpuscular volume ) determinationOrdered By: Kyle Noel on 10-11-2024 MCV (RBC) [Entitic vol] 96.1 fL High 80-94 [facility] Magnesiumon 10-11-2024 Magnesium [Mass/Vol] 2.2 mg/dL Normal 1.5-2.2 [facility] Comment on above: Order Comment: Order Date: 03/04/25Order Info: [id number] - CMPOrder Info: [id number] - LIPIDOrder Info: [id number] - MGOrder Info: [id number] - TSH Performed By: #### L 500.4100, L100.0100, L500.4050, L501.9520, L501.5200, L509.1000 ####[facility] [address] [place], [address] Magnesium (Unsp spec) [Mass/ Vol]Ordered By: Kyle Noel on 10-11-2024 Magnesium [Mass/Vol] 2.2 mg/dL 1.5-2.2 [facility] Magnesium measurement (mass/ volume)Ordered By: Kyle Noel on 10-11-2024 Magnesium (Unsp spec) [Mass/Vol] 2.2 mg/dL 1.5-2.2 [facility] Mean corpuscular hemoglobin (MCH) determinationOrdered By: Kyle Noel on 10-11-2024 MCH (RBC) [Entitic mass] 31.1 pg 27.0-32.0 [facility] Mean corpuscular hemoglobin concentration (MCHC) determinationOrdered By: Kyle Noel on 10-11-2024 MCHC (RBC) [Mass/Vol] 32.4 g/dL 32-36 [facility] Mean platelet volume determi nationOrdered By: Kyle Noel on 10-11-2024 Platelet mean volume (Bld) [Entitic vol] 10.0 fL 6.2-12.0 [facility] Microscopic analysis of urin e for red blood cells (RBC)Ordered By: Kyle Noel on 10-11-2024 Microscopic analysis of urine for red blood cells (RBC) 0 SEEN /hpf 0-5 [facility] Urine RBC 0 SEEN /hpf 0-5 [facility] Monocyte percentageOrdered B y: Kyle Noel on 10-11-2024 Monocytes/100 WBC (Bld) 11.1 % High 0-10 [facility] Mucus LM Ql (Urine sed)Order ed By: Kyle Noel on 10-11-2024 Mucus Ql (Urine sed) 0 SEEN /hpf [facility] Neutrophil percentageOrdered By: Kyle Noel on 10-11-2024 Neutrophils/100 WBC (Bld) 63.4 % 47-70 [facility] Nitrite Test strip Ql (U)Ord ered By: Kyle Noel on 10-11-2024 Nitrite Ql (U) Negative Negative [facility] Nucleated red blood cell per centageOrdered By: Kyle Noel on 10-11-2024 Nucleated RBC/100 WBC (Bld) [Ratio] 0 % 0-5 [facility] PTH intactOrdered By: Kyle riojas on 10-11-2024 Parathyroid Hormone (Intact) 52 pg/mL [facility] PTHINon 10-11-2024 PTH 52 pg/mL Normal [facility] Comment on above: Order Comment: Order Date: 10/04/24Order Info: [id number] - PTHIN Performed By: #### L 500.4100, L100.0100, L500.4050, L501.9520, L501.5200, L509.1000 ####[facility] [address] [place], [address] Platelet countOrdered By: Pidead Noel on 10-11-2024 Platelets (Bld) [#/Vol] 226 10*3/uL 150-450 [facility] Potassium (Unsp spec) [Mass/ Vol]Ordered By: Kyle Noel on 10-11-2024 Potassium [Moles/Vol] 4.1 mmol/L 3.3-5.1 [facility] Potassium measurement (mass/ volume)Ordered By: Kyle Noel on 10-11-2024 Potassium (Unsp spec) [Mass/Vol] 4.1 mmol/L 3.3-5.1 [facility] Protein Test strip Ql (U)Ord ered By: Kyle Noel on 10-11-2024 Protein Ql (U) 15 mg/dl High Negative [facility] Protein+Creatinine Ratio,Uri neon 10-11-2024 PROT:CRE RATIO 75 mg/g CRE Normal 0-200 [facility] Comment on above: Performed By: #### L 501.0900, L501.9985, L3300.6820, L3300.6900, L400.0001, L503.0106, L506.1001 ####[facility] [address] [place], [address] Protein (U) [Mass/Vol] 14.9 mg/dL High 0.0-12.0 [facility] Comment on above: Performed By: #### L 501.0900, L501.9985, L3300.6820, L3300.6900, L400.0001, L503.0106, L506.1001 ####[facility] [address] [place], [address] UR CREAT 199.00 mg/dL Normal 39-259 [facility] Comment on above: Performed By: #### L 501.0900, L501.9985, L3300.6820, L3300.6900, L400.0001, L503.0106, L506.1001 ####[facility] [id number] [place], [address] Protein/Creatinine (U) [Mass ratio]Ordered By: Kyle Noel on 10-11-2024 Urine Protein/Creatinine Ratio 75 mg/g CRE 0-200 [facility] RBC Auto (Bld) [#/Vol]Ordere d By: Kyle Noel on 10-11-2024 RBC (Bld) [#/Vol] 4.82 10*6/uL 4.6-6.2 [facility] Random urine creatinine levar urement (mass/volume)Ordered By: Kyle Noel on 10-11-2024 Creatinine Unsp time (U) [Mass/Vol] 199.00 mg/dL 39-259 [facility] Screening total cholesterol/ high density lipoprotein (HDL) cholesterol ratioOrdered By: Kyle Noel on 10-11-2024 Cholesterol.total/Nicole sterol in HDL [Mass ratio] 3.17 {ratio} [facility] Serum creatinine measurement (mass/volume)Ordered By: Kyle Noel on 10-11-2024 Creatinine [Mass/Vol] 1.17 mg/dL 0.70-1.20 [facility] Serum globulin measurementOr dered By: Kyle Noel on 10-11-2024 Globulin (S) [Mass/Vol] 2.9 g/dL 2.2-4.2 [facility] Serum glucose measurement (m ass/volume)Ordered By: Kyle Noel on 10-11-2024 Glucose [Mass/Vol] 106 mg/dL High 70-99 [facility] Serum or plasma alanine cheung otransferase (ALT) measurementOrdered By: Kyle Noel on 10-11-2024 ALT [Catalytic activity/Vol] 17 U/L <47 [facility] Serum or plasma albumin levar urement (mass/volume)Ordered By: Kyle Noel on 10-11-2024 Albumin [Mass/Vol] 4.2 g/dL 3.4-4.8 [facility] Serum or plasma albumin/glob ulin mass ratioOrdered By: Kyle Noel on 10-11-2024 Albumin/Globulin [Mass ratio] 1.4 {ratio} 0.9-2.4 [facility] Serum or plasma alkaline tita sphatase measurementOrdered By: Kyle Noel on 10-11-2024 ALP [Catalytic activity/Vol] 89 U/L 40-129 [facility] Serum or plasma calcium levar urement (mass/volume)Ordered By: Kyle Noel on 10-11-2024 Calcium [Mass/Vol] 9.4 mg/dL 7.6-11.0 [facility] Serum or plasma cholesterol in HDL measurement (mass/volume)Ordered By: Kyle Noel on 10-11-2024 Cholesterol in HDL [Mass/Vol] 48 mg/dL >40 [facility] Comment on above: National Cholesterol Education Program (NCEP) guidelines:<40 mg/dL: Low HDL-cholesterol (major risk factor for CHD)>= 60 mg/dL: High HDL-cholesterol (negative risk factor for CHD)HDL-cholesterol is affected by a number of factors, e.g. smoking, exercise, hormones, sex and age. Serum or plasma cholesterol measurement (mass/volume)Ordered By: Kyle Noel on 10-11-2024 Cholesterol [Mass/Vol] 153 mg/dL <201 [facility] Comment on above: Cholesterol level, D esirable <200 mg/dLBorderline high cholesterol 200-239 mg/dLHigh cholesterol >=240 mg/dLRecommendations of the NCEP Adult Treatment Panel for the following risk-cutoff thresholds for the [place] population. Serum or plasma thyroperoxid ase antibody assay (units/volume)Ordered By: Kyle Noel on 10-11-2024 TPO Ab Qn 12 [IU]/mL 0-34 [facility] Comment on above: Performed at: [facility] [address] [id number] Director: Fernando West PhD, Phone: [phone] Serum or plasma urea nitroge n measurement (mass/volume)Ordered By: Kyle Noel on 10-11-2024 Urea nitrogen [Mass/Vol] 20 mg/dL High 4-19 [facility] Sodium levelOrdered By: Kyle Noel on 10-11-2024 Sodium [Moles/Vol] 139 mmol/L 133-145 [facility] Squamous epithelial cells de tection in urine sediment by light microscopyOrdered By: Kyle Noel on 10-11-2024 Epithelial cells.squamous LM Ql (Urine sed) 0-5 SEEN /hpf 0-5 [facility] TPO Ab QnOrdered By: Kyle vaughn on 10-11-2024 Thyroid Peroxidase Antibodies 12 IU/mL 0-34 [facility] Comment on above: Performed at: [facility] [address] [id number] Director: Fernando West PhD, Phone: [phone] TSH DL <= 0.005 mIU/L QnOrde red By: Kyle Noel on 10-11-2024 Thyroid Stimulating Hormone (TSH) 2.870 uIU/mL 0.300-4.200 [facility] TSH Qn 2.870 uIU/mL 0.300-4.200 [facility] Thyroglobulin Ab serumOrdere d By: Kyle Noel on 10-11-2024 Thyroglobulin Antibody < 1.0 IU/mL 0.0-0.9 [facility] Comment on above: Thyroglobulin Antibo dy measured by XDCMethodologyIt should be noted that the presence of thyroglobulinantibodies may not be pathogenic nor diagnostic, especiallyat very low levels. The assay safety council director has found thatfour percent of individuals without evidence of thyroiddisease or autoimmunity will have positive TgAb levels upto 4 IU/mL. Thyroglobulin serOrdered By: Kyle Noel on 10-11-2024 Thyroglobulin Level 6.4 ng/mL 1.4-29.2 [facility] Comment on above: According to the [facility] Academy of Clinical Biochemistry,the reference interval for Thyroglobulin (TG) should berelated to euthyroid patients and not for patients whounderwent thyroidectomy. TG reference intervals for thesepatients depend on the residual mass of the thyroid tissueleft after surgery. Establishing a post-operative baselineis recommended. The assay limit of quantitation is 0.1ng/mLThyroglobulin measured by Lupe Middleton [employer] Thyroid Stim Hormone (TSH)on 10-11-2024 TSH 2.870 uIU/mL Normal 0.300-4.200 [facility] Comment on above: Order Comment: Order Date: 10/04/24Order Info: [id number] - CMPOrder Info: [id number] - LIPIDOrder Info: [id number] - MGOrder Info: [id number] - TSH Performed By: #### L 500.4100, L100.0100, L500.4050, L501.9520, L501.5200, L509.1000 ####[facility] [address] [place], [address] Total proteinOrdered By: Amanuel Noel on 10-11-2024 Protein [Mass/Vol] 7.1 g/dL 5.9-8.4 [facility] Triglycerides measurementOrd ered By: Kyle Noel on 10-11-2024 Triglyceride [Mass/Vol] 169 mg/dL <199 [facility] Comment on above: The drugs N-Acetylcy steine and Metamizole may falsely depress this assay. Normal range: <150 mg/dLBorderline High: 150-199 mg/dLHigh: 200-499 mg/dLVery High: >500 mg/dL Urinalysis, Completeon 10-11 EPI,SQUAMOUS 0-5 SEEN Normal 0-5 [facility] Comment on above: Order Comment: CLEAN CATCH Performed By: #### L 501.0900, L501.9985, L3300.6820, L3300.6900, L400.0001, L503.0106, L506.1001 ####[facility] [address] [place], [address] RBC 0 SEEN Normal 0-5 [facility] Comment on above: Order Comment: CLEAN CATCH Performed By: #### L 501.0900, L501.9985, L3300.6820, L3300.6900, L400.0001, L503.0106, L506.1001 ####[facility] [address] [place], [address] WBC 0-5 SEEN Normal 0-5 [facility] Comment on above: Order Comment: CLEAN CATCH Performed By: #### L 501.0900, L501.9985, L3300.6820, L3300.6900, L400.0001, L503.0106, L506.1001 ####[facility] [address] [place], [address] BACTERIA 0 SEEN Normal None Seen [facility] Comment on above: Order Comment: CLEAN CATCH Performed By: #### L 501.0900, L501.9985, L3300.6820, L3300.6900, L400.0001, L503.0106, L506.1001 ####[facility] [address] [place], [address] Mucus Ql (Urine sed) 0 SEEN Normal [facility] Comment on above: Order Comment: CLEAN CATCH Performed By: #### L 501.0900, L501.9985, L3300.6820, L3300.6900, L400.0001, L503.0106, L506.1001 ####[facility] [address] [place], [address] Urine blood detectionOrdered By: Kyle Noel on 10-11-2024 Urine Occult Blood Negative Negative [facility] Urine clarityOrdered By: Amanuel Noel on 10-11-2024 Clarity (U) Clear Clear [facility] Urine color determinationOrd ered By: Kyle Noel on 10-11-2024 Color (U) Yellow Yellow [facility] Urine glucose detectionOrder ed By: Kyle Noel on 10-11-2024 Glucose Ql (U) Normal mg/dl Normal [facility] Urine leukocyte esterase det ection by dipstickOrdered By: Kyle Noel on 10-11-2024 Leukocyte esterase Test strip Ql (U) Negative Negative [facility] Urine pHOrdered By: Kyle whitaker on 10-11-2024 pH (U) 6.0 [pH] 5.0 - 8.0 [facility] Urine protein measurement (m ass/volume)Ordered By: Kyle Noel on 10-11-2024 Protein (U) [Mass/Vol] 14.9 mg/dL High 0.0-12.0 [facility] Urine protein/creatinine mas s ratioOrdered By: Kyle Noel on 10-11-2024 Protein/Creatinine (U) [Mass ratio] 75 mg/g CRE 0-200 [facility] Urine sediment bacteria coun t by microscopy (number/high power field)Ordered By: Kyle Noel on 10-11-2024 Bacteria LM.HPF (Urine sed) [#/Area] 0 /[HPF] None Seen [facility] Urine specific gravity measu rementOrdered By: Kyle Noel on 10-11-2024 Specific gravity (U) [Rel density] 1.020 1.002-1.030 [facility] Urine urobilinogen measureme ntOrdered By: Kyle Noel on 10-11-2024 Urobilinogen Ql (U) Normal mg/dl Normal [facility] Urobilinogen Ql (U)Ordered B y: Kyle Noel on 10-11-2024 Urine Urobilinogen Normal mg/dl Normal [facility] Vitamin B12 ser/plasOrdered By: Kyle Noel on 10-11-2024 Cobalamin (Vitamin B12) [Mass/Vol] 908 pg/mL 180-914 [facility] Vitamin D, 25-hydroxyOrdered By: Kyle Noel on 10-11-2024 Vitamin D 25-Hydroxy 29.9 ng/mL Low 30-100 [facility] Comment on above: Vitamin D StatusDefi ciency: <20 ng/mL (50nmol/L)Insufficiency: 20-30 ng/mL (50-75 nmol/L)Sufficiency: 30-100 ng/mL (75-250 nmol/L)Toxicity: >100 ng/mL (>250 nmol/L) White blood cell (WBC) count Ordered By: Kyle Noel on 10-11-2024 WBC (Bld) [#/Vol] 6.3 10*3/uL 4.4-11.0 [facility] White blood cell countOrdere d By: Kyle Noel on 10-11-2024 Urine WBC 0-5 SEEN /hpf 0-5 [facility] White blood cell count 0-5 SEEN /hpf 0-5 [facility] Thyroidon 10-07-2024 Thyroid [facility] [address] [place] [id number] Thyroid MR#: [id number] Acct: [id number] Name: TRINA SAMUEL Rep #: [id number] : 1945 M 79 From: Lalo amaya MD PCP: Dr. Kyle Noel MD Status: REG CLI Study: Thyroid Date of Exam: 10/07/24 Exam# [id number] Ordering Dr: Kyle Noel MD PROCEDURE: Ultrasound of the thyroid. REASON FOR EXAM: Thyroid nodule. COMPARISON: None. PROCEDURE: RIGHT LOBE: The right lobe of the thyroid gland measures 3.6 cm x 2 cm x 1.4 cm cm. There is a heterogeneous echotexture. There is a 4 mm x 5 mm x 4 mm cystic/solid nodule in the inferior pole. No increased blood flow is seen. LEFT LOBE: The left lobe of the thyroid gland measures 3.4 cm x 1.6 cm x 1.3 cm. There is a heterogeneous echotexture. There are no demonstrated solid, cystic or complex lesions. ISTHMUS: The isthmus measures 5 mm. The regional lymph nodes are normal. US/Thyroid IMPRESSION: Heterogeneous appearance of both lobes of the thyroid gland. There is a 4 mm x 5 mm x 4 mm cystic/solid nodule in the inferior pole of the right lobe of the thyroid without increased blood flow. Routine follow-up recommended. Reading Location: [id number] CC: Dr. Kyle Noel MD Regional Education Coordinator: Signed Normal [facility] Vital Signs Date Time Vital Sign Value Performing Clinician Faci lity 10-19-2024 14:16-0400 Body height 180.34 cm Self Referred [facility] 10-19-2024 14:16-0400 Body mass index (BMI) [Ratio] 33.5 kg/m2 Self Referred [facility] 10-19-2024 14:16-0400 Body weight 108.86 kg Self Referred [facility] 10-19-2024 14:16-0400 Diastolic blood pressure 76 mm[Hg] Self Referred [facility] 10-19-2024 14:16-0400 Heart rate 74 /min Self Referred [facility] 10-19-2024 14:16-0400 Respiratory rate 16 /min Self Referred [facility] 10-19-2024 14:16-0400 Systolic blood pressure 164 mm[Hg] Self Referred [facility] Encounters Encounter Date Encounter Type Care Provider Facility Start: 03-15-2025 ambulatory Trina Rivas Kristan ty:[facility] Start: 01-26-2025 End: 01-26-[address] Kyle Noel MD Work Phone: -Laboratory [facility] Start: 01-26-2025 End: 01-26-[address] Kyle Noel MD -Laboratory [facility] Start: 01-26-2025 End: 01-26-2025 ambulatory Kyle Noel Facility:[facility] Start: 11-24-[address] Kyle Noel MD -Occupational Therapy Work Phone: Start: 11-24-2024 ambulatory Kyle Noel Facilit y:[facility] Start: 11-11-2024 ambulatory Kyle Noel Facilit y:[facility] Start: 11-11-2024 Non-patient / Non-visit Dr. Cecy RAO -[facility] Start: 11-11-2024 End: 11-11-2024 ambulatory Self Referred [facility] Work Phone: Start: 11-11-2024 End: 11-11-[address] Gm Srinivasan MD -Cardiovascular Services Work Phone: Start: 11-11-2024 End: 11-11-2024 [facility] Start: 10-31-2024 Encounter for other preprocedural examination Kyle Noel [facility] Start: 10-27-2024 End: 10-27-2024 ambulatory Self Referred [facility] Work Phone: Start: 10-27-2024 End: 10-27-[address] [facility] Work Phone: Start: 10-27-2024 End: 10-27-2024 ambulatory Kyle Noel Facility:[facility] Start: 10-24-2024 End: 10-24-2024 ambulatory Self Referred [facility] Work Phone: Start: 10-24-2024 End: 10-24-[address] Kyle Noel MD -[facility] Work Phone: Start: 10-24-2024 End: 10-24-2024 ambulatory Kyle Noel Facility:[facility] Start: 10-19-2024 End: 10-19-[address] Gm Srinivasan MD -[facility] Work Phone: Start: 10-19-2024 End: 10-19-2024 ambulatory Out of Town Doctor Facility:[facility] Start: 10-11-2024 End: 10-11-2024 ambulatory Self Referred [facility] Work Phone: Start: 10-11-2024 End: 10-11-[address] [facility] Start: 10-11-2024 End: 10-11-2024 ambulatory Kyle oNel Facility:[facility] Start: 10-07-2024 End: 10-07-2024 ambulatory Self Referred [facility] Work Phone: Start: 10-07-2024 End: 10-07-[address] Kyle Noel MD -Ultrasound, [facility] Work Phone: Start: 10-07-2024 End: 10-07-2024 ambulatory Kyle Noel Facility:[facility] Start: 08-05-2024 Registered Referred Self Referred -[facility] Services Work Phone: Start: 08-05-2024 ambulatory Self Referred Facility: [facility] Procedures Date Procedure Procedure Detail Performing Clinician Start: 01-26-2025 Urnls dip stick/tabl et reagent auto microscopy Dr. Kyle Noel MD Work Phone: Start: 01-26-2025 Vitamin D, 25-hydrox y measurement Dr. Kyle Noel MD Work Phone: Comment on above: Vitamin D StatusDefi ciency: <20 ng/mL (50nmol/L)Insufficiency: 20-30 ng/mL (50-75 nmol/L)Sufficiency: 30-100 ng/mL (75-250 nmol/L)Toxicity: >100 ng/mL (>250 nmol/L) Start: 11-11-2024 Radionuclide imaging of perfusion of myocardium under exercise stress Self Referred Start: 10-27-2024 Plain x-ray of wrist Se lf Referred Start: 10-24-2024 X-ray for foreign jim dy of both orbits Self Referred Start: 10-24-2024 MRI of brain with contrast Self Referred Start: 10-19-2024 Evaluation of diagno stic study results Self Referred Start: 10-11-[address] Kyle Noel MD Work Phone: Start: 10-11-[address] Kyle Noel MD Work Phone: Comment on above: According to the [facility] [employer] of Clinical [employer]ochemistry,the reference interval for Thyroglobulin (TG) should berelated to euthyroid patients and not for patients whounderwent thyroidectomy. TG reference intervals for thesepatients depend on the residual mass of the thyroid tissueleft after surgery. Establishing a post-operative baselineis recommended. The assay limit of quantitation is 0.1ng/mLThyroglobulin measured by Lupe Rashaad [employer] Start: 10-11-20[address]o dy measurement [address] Kyle Noel MD Work Phone: Comment on above: Thyroglobulin Antibo dy measured by Lupe CoulterMethodologyIt should be noted that the presence of thyroglobulinantibodies may not be pathogenic nor diagnostic, especiallyat very low levels. The assay safety council director has found thatfour percent of individuals without evidence of thyroiddisease or autoimmunity will have positive TgAb levels upto 4 IU/mL. Start: 10-11-2024 Urnls dip stick/tabl et reagent auto microscopy Dr. Kyle Noel MD Work Phone: Start: 10-11-2024 Vitamin D, 25-hydrox y measurement Dr. Kyle Noel MD Work Phone: Comment on above: Vitamin D StatusDefi ciency: <20 ng/mL (50nmol/L)Insufficiency: 20-30 ng/mL (50-75 nmol/L)Sufficiency: 30-100 ng/mL (75-250 nmol/L)Toxicity: >100 ng/mL (>250 nmol/L) Start: 10-07-2024 US scan of thyroid Self Referred Plan of Treatment Date Care Activity Detail Author Patient referral [facility] Work Phone: Radionuclide imaging of perfusion of myocardium under exercise stress [facility] Payers Date Payer Category Payer Self-pay 2023 Private Health Insurance 101 [id number] Unknown [id number] 2.16.8 [id number] Unknown [id number] 2.16.8 [id number] Unknown [id number] 2.16.8 [id number] Unknown [id number] 2.16.8 [id number] Unknown [id number] 2.16.8 [id number] Unknown [id number] 2.16.8 [id number] Unknown [id number] 2.16.8 [id number] Unknown [id number] 2.16.8 [id number] Unknown [id number] 2.16.8 [id number] Unknown [id number] 2.16.8 [id number] Unknown [id number] 2.16.8 [id number] Unknown [id number] 2.16.8 [id number] Social History Date Type Detail Facility Start: 09-20-2024 Tobacco smoking stat [facility] Never smoked tobacco (finding) [facility] Start: 10-18-2024 End: 11-16-2024 Sex Male (finding) [facility] Start: 1945 Sex Assigned At Male [facility] Radiology Diagnostic study note 10-28-2024 Note Date & Type Note Facility 10-28-2024 Radiology Diagnostic study note [facility] [address] [place], [place] [address] Wrist min 3 Views MR#: [id number] Acct: [id number] Name: TRINA SAMUEL Rep #: [id number] : 1945 M 79 From: Sheri Alonso MD PCP: Dr. Kyle Noel MD Status: RE G CLI Study:Wrist min 3 Views Date of Exam: Exam# [id number] Ordering Dr: Kyle Noel MD EXAM: XR Right Wrist Complete, 3 or More Views CLINICAL INDICATION: PAIN TECHNIQUE: Frontal, lateral and oblique views of the right wrist. COMPARISON: No relevant prior studies available. FINDINGS: BONES/JOINTS: Healed fracture deformity of the proximal radius. No dislocation. SOFT TISSUES: Soft tissue swelling. No radiopaque foreign body. RAD/Wrist min 3 Views IMPRESSION: Healed fracture deformity of the proximal radius. Reading [facility] CC: Dr. Kyle Noel MD ~ Regional Education Coordinator: Signed [facility] Radiology Diagnostic study note 10-24-2024 Note Date & Type Note Facility 10-24-2024 Radiology Diagnostic study note [facility] Services [address] [place] [id number] Orbits for Foreign Body MR#: [id number] Acct: [id number] Name: TRINA SAMUEL Rep #: [id number] : 1945 M 79 From: Sheri Alonso MD PCP: Dr. Kyle Noel MD Status: RE G CLI Study:Orbits for Foreign Body Date of Exam: 10/24/24 Exam# [id number] Ordering Dr: Kyle Noel MD EXAM: XR Orbits Foreign Body CLINICAL INDICATION: MRI CLEARANCE TECHNIQUE: Frontal view(s) of the orbits. COMPARISON: No relevant prior studies available. FINDINGS: BONES/JOINTS: Unremarkable. No acute fracture. SINUSES: Unremarkable. No air-fluid levels. SOFT TISSUES: Unremarkable. No radiopaque foreign body. RAD/Orbits for Foreign Body IMPRESSION: Normal orbital x-rays. No radiopaque foreign body in either orbit. Reading Location[facility] CC: Dr. Kyle Noel MD ~ Regional Education Coordinator: Signed [facility] Evaluation note 10-19-2024 Note Date & Type Note Facility 10-19-2024 Evaluation note Diagnosis Onset Date Resolution CAD (coronary atherosclerotic disease) without angina pectoris acute October 192024 1:56pm Essential (primary) hypertension acute October 19, 2024 1:56pm Hypercholesteremia acute October 19, 2024 1:56pm [facility] Work Phone: Radiology Diagnostic study note 10-07-2024 Note Date & Type Note Facility 10-07-2024 Radiology Diagnostic study note [facility] Services [address] [place] [address] Thyroid MR#: [id number] Acct: [id number] Name: TRINA SAMUEL Rep #: [id number] : 1945 M 79 From: Juan Francisco Key MD PCP: Dr. Kyle Noel MD Status: RE G CLI Study:Thyroid Date of Exam: 10/07/24 Exam# [id number] Ordering Dr: Kyle Noel MD PROCEDURE: Ultrasound of the thyroid. REASON FOR EXAM: Thyroid nodule. COMPARISON: None. PROCEDURE: RIGHT LOBE: The right lobe of the thyroid gland measures 3.6 cm x 2 cm x 1.4 cmcm. There is a heterogeneous echotexture. There is a 4 mm x 5 mm x 4 mm cystic/solid nodule in the inferior pole. No increased blood flow is seen. LEFT LOBE: The left lobe of the thyroid gland measures 3.4 cm x 1.6 cm x 1.3 cm. There is a heterogeneous echotexture. There are no demonstrated solid, cystic or complex lesions. ISTHMUS: The isthmus measures 5 mm. The regional lymph nodes are normal. US/Thyroid IMPRESSION: Heterogeneous appearance of both lobes of the thyroid gland. There is a 4 mm x 5 mm x 4 mm cystic/solid nodule in the inferior pole of the right lobe of the thyroid without increased blood flow. Routine follow-up recommended. Reading Location: [id number] CC: Dr. Kyle Noel MD ~ Regional Education Coordinator: Signed [facility] Evaluation note Note Date & Type Note Facility Evaluation note No assessment information availa 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 THYROID NODULE October 07, 2024 11:4 7am EST (SELF) October 19, 2024 1:5 6pm Reason for Visit Admit Date CAD (coronary atheroscleroti c disease) without angina pectoris October 19, 2024 1:56pm Essential (primary) hypertension October 012024 1:56pm Hypercholesteremia October 19, 2024 1:5 6pm Chief Complaint Admit Date 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, 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 THYROID NODULE October 07, 2024 11:4 7am EST (SELF) October 19, 2024 1:5 6pm TRIGEMINAL NEURALGIA October 24, 2024 6: 39am pain- RIGHT WRIST October 27, 2024 10: 15am Chief Complaint Admit Date 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, 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 THYROID NODULE October 07, 2024 11:4 7am EST (SELF) October 19, 2024 1:5 6pm TRIGEMINAL NEURALGIA October 24, 2024 6: 39am pain- RIGHT WRIST October 27, 2024 10: 15am CAD November 11, 2024 6:2 9am Chief Complaint Admit Date THYROID NODULE October 07, 2024 11:4 7am EST (SELF) October 19, 2024 1:5 6pm TRIGEMINAL NEURALGIA October 24, 2024 6: 39am pain- RIGHT WRIST October 27, 2024 10: 15am CAD November 11, 2024 6:2 9am WRIST PN/RX HERE November 24, 2024 10: 20am Family History No Family History Records Found Relationship Condition Age at Onset Recorded Date/T cyrus brother Coronary artery dise ase involving coronary bypass graft Unknown Summary Purpose Advance Directives No Advanced Directives Records Found Additional Source Comments Care Teams (unrecognized sec tion and content) Team Status: Active Member Role Status Dates Dr. Kyle Noel MD Primary Care Provider Active Team Status: Active Member Role Status Dates Self Referred Attending Provider Active Start: J anuary 2024 Self Referred Referring Provider Active Start: J anuary 2024 No Primary Care Physician Primary Care Provider Active Start: August 05, 2024 Team Status: Inactive Member Role Status Dates Dr. Kyle Noel MD Primary Care Provider Active Start: October 07, 2024 End: October 07, 2024 Dr. Kyle Noel MD Attending Provider Active Start: October 07, 2024 End: October 07, 2024 Dr. Kyle Noel MD Referring Provider Active Start: October 07, 2024 End: October 07, 2024 Team Status: Active Member Role Status Dates Dr. Kyle Noel MD Primary Care Provider Active Start: October 11, 2024 Dr. Kyle Noel MD Attending Provider Active Start: October 11, 2024 Dr. Kyle Noel MD Referring Provider Active Start: October 11, 2024 Team Status: Inactive Member Role Status Dates Dr. Kyle Noel MD Primary Care Provider Active Start: October 11, 2024 End: October 11, 2024 Dr. Kyle Noel MD Attending Provider Active Start: October 11, 2024 End: October 11, 2024 Dr. Kyle Noel MD Referring Provider Active Start: October 11, 2024 End: October 11, 2024 Team Status: Inactive Member Role Status Dates Out of [facility] Doctor Referring Provider Active Sta rt: October 19, 2024 End: October 19, 2024 Dr. Gm Srinivasan MD Attending Provider Active S tart: October 19, 2024 End: October 19, 2024 Dr. Kyle Noel MD Primary Care Provider Active Start: October 19, 2024 End: October 19, 2024 Team Status: Inactive Member Role Status Dates Dr. Kyle Noel MD Primary Care Provider Active Start: October 24, 2024 End: October 24, 2024 Dr. Kyle Noel MD Attending Provider Active Start: October 24, 2024 End: October 24, 2024 Dr. Kyle Noel MD Referring Provider Active Start: October 24, 2024 End: October 24, 2024 Team Status: Active Member Role Status Dates Dr. Kyle Noel MD Primary Care Provider Active Start: October 27, 2024 Dr. Kyle Noel MD Attending Provider Active Start: October 27, 2024 Dr. Kyle Noel MD Referring Provider Active Start: October 27, 2024 Team Status: Inactive Member Role Status Dates Dr. Kyle Noel MD Primary Care Provider Active Start: October 27, 2024 End: October 27, 2024 Dr. Kyle Neol MD Attending Provider Active Start: October 27, 2024 End: October 27, 2024 Dr. Kyle Noel MD Referring Provider Active Start: October 27, 2024 End: October 27, 2024 Team Status: Inactive Member Role Status Dates Dr. Kyle Noel MD Primary Care Provider Active Start: November 11, 2024 End: November 11, 2024 Dr. Gm Srinivasan MD Attending Provider Active S tart: November 11, 2024 End: November 11, 2024 Dr. Gm Srinivasan MD Referring Provider Active S tart: November 11, 2024 End: November 11, 2024 Team Status: Active Member Role Status Dates Dr. Kyle Noel MD Primary Care Provider Active Start: November 11, 2024 Dr. Gm Srinivasan MD Attending Provider Active S tart: November 11, 2024 Team Status: Active Member Role/Relationship Status Dates Dr. Kyle Noel MD Primary Care Provider Active Team Status: Inactive Member Role/Relationship Status Dates Dr. Kyle Noel MD Primary Care Provider Active Start: October 07, 2024 End: October 07, 2024 Dr. Kyle Noel MD Attending Provider Active Start: October 07, 2024 End: October 07, 2024 Dr. Kyle Noel MD Referring Provider Active Start: October 07, 2024 End: October 07, 2024 Team Status: Inactive Member Role/Relationship Status Dates Dr. Kyle Noel MD Primary Care Provider Active Start: October 11, 2024 End: October 11, 2024 Dr. Kyle Noel MD Attending Provider Active Start: October 11, 2024 End: October 11, 2024 Dr. Kyle Noel MD Referring Provider Active Start: October 11, 2024 End: October 11, 2024 Team Status: Inactive Member Role/Relationship Status Dates Out of [facility] Doctor Referring Provider Active Sta rt: October 19, 2024 End: October 19, 2024 Dr. Gm Srinivasan MD Attending Provider Active S tart: October 19, 2024 End: October 19, 2024 Dr. yKle Noel MD Primary Care Provider Active Start: October 19, 2024 End: October 19, 2024 Team Status: Inactive Member Role/Relationship Status Dates Dr. Kyle Noel MD Primary Care Provider Active Start: October 24, 2024 End: October 24, 2024 Dr. Kyle Noel MD Attending Provider Active Start: October 24, 2024 End: October 24, 2024 Dr. Kyle Noel MD Referring Provider Active Start: October 24, 2024 End: October 24, 2024 Team Status: Inactive Member Role/Relationship Status Dates Dr. Kyle Noel MD Primary Care Provider Active Start: October 27, 2024 End: October 27, 2024 Dr. Kyle Noel MD Attending Provider Active Start: October 27, 2024 End: October 27, 2024 Dr. Kyle Noel MD Referring Provider Active Start: October 27, 2024 End: October 27, 2024 Team Status: Inactive Member Role/Relationship Status Dates Dr. Kyle Noel MD Primary Care Provider Active Start: November 11, 2024 End: November 11, 2024 Dr. Gm Srinivasan MD Attending Provider Active S tart: November 11, 2024 End: November 11, 2024 Dr. Gm Srinivasan MD Referring Provider Active S tart: November 11, 2024 End: November 11, 2024 Team Status: Active Member Role/Relationship Status Dates Dr. Kyle Noel MD Primary Care Provider Active Start: November 11, 2024 Dr. Gm Srinivasan MD Attending Provider Active S tart: November 11, 2024 Team Status: Active Member Role/Relationship Status Dates Dr. Kyle Noel MD Primary Care Provider Active Start: November 24, 2024 Dr. Kyle Noel MD Attending Provider Active Start: November 24, 2024 Dr. Kyle Noel MD Referring Provider Active Start: November 24, 2024 Team Status: Inactive Member Role/Relationship Status Dates Dr. Kyle Noel MD Primary Care Provider Active Start: January 26, 2025 End: January 26, 2025 Dr. Kyle Noel MD Attending Provider Active Start: January 26, 2025 End: January 26, 2025 Dr. Kyle Noel MD Referring Provider Active Start: January 26, 2025 End: January 26, 2025 Goals (unrecognized section and content) Goals may be documented in a n alternate sectionGoals may be documented in an alternate sectionGoals may be documented in an alternate sectionGoals may be documented in an alternate sectionGoals may be documented in an alternate sectionGoals may be documented in an alternate section (unrecognized sect ion and content) No Status Records Found INFORMATION SOURCE (unrecogn ized section and content) DATE CREATED AUTHOR 03/04/2025 [facility] FOR RECORDS PERTAINING TO PATIENTS WHO ARE OR HAVE BEEN ENROLLED IN A CHEMICAL DEPENDENCY/SUBSTANCEABUSE PROGRAM, SOME INFORMATION MAY BE OMITTED. This clinical summary was aggregated from multiple sources. Caution should be exercised in using it in the provision of clinical care. This summary normalizes information from multiple sources, and as a consequence, information in this document may materially change the coding, format and clinical context of patient data. In addition, data may be omitted in some cases. CLINICAL DECISIONS SHOULD BE BASED ON THE PRIMARY CLINICAL RECORDS. [employer] provides no warranty or guarantee of the accuracy or completeness of information in this document.
== END | disposition home or self-care (01) ==
LOC: CT 07:33
PROVIDERS: PCP Family Medicine; Referring Provider Internal Medicine Pulmonary Disease; Visit Provider Internal Medicine Pulmonary Disease
DX: R09.02 Hypoxemia (principal)
CPT/HCPCS: 71250